=== PATIENT | male | born 1945 | race Caucasian/White ===

== ENCOUNTER 2018-06-06 15:39 | Inpatient (IN) | payer MEDICARE, OTHER | END 2018-06-09 14:41 | disposition home health service (06) | LOC: ER 15:39 → ED HOLD 18:44 → PCU 3S 21:15 | DX: I11.0 Hypertensive heart disease with heart failure (principal); G92 Toxic encephalopathy; E87.1 Hypo-osmolality and hyponatremia; J44.1 Chronic obstructive pulmonary disease with (acute) exacerbation; I50.9 Heart failure, unspecified; E78.00 Pure hypercholesterolemia, unspecified; F10.20 Alcohol dependence, uncomplicated ==

== ENCOUNTER 2022-07-28 09:05 | Emergency (ER) | payer MEDICARE, OTHER ==
[~2022-07-28] VITALS: Ht 175.3 cm; Wt 81.8 kg
[~2022-07-28 09:05] MED LIST: ALBU6.7H14 INH; AMLO5TAB16 PO; FOLI1TAB27 PO; IBUP-1985 PO; LEVO-65 PO; PANT40TA54 PO; PRAV80TA PO; TRAZ150T78 PO; thiamine tablet PO
--- NOTE | 2022-07-28 09:32 | NUR ---
TO CT SCAN
[2022-07-28 10:01] LABS: CLARITY,URINE SLIGHTLY CLOUDY (Clear); COLOR,URINE YELLOW (Yellow); GLUCOSE, URINE NEGATIVE (Neg); KETONES,URINE NEGATIVE (Neg); LEUKOCYTE ESTERASE ,URINE MODERATE (Neg); NITRITES, URINE NEGATIVE (Neg); OCCULT BLOOD,URINE SMALL (Neg); PH,URINE 6.5 (4.8-8.0); PROTEIN,URINE 30 mg/dl (Neg); UROBILINOGEN,URINE 0.2 E.U/dL (0.2-1.0)
[2022-07-28 10:02] LABS: UA COLLECTION TYPE VOIDED
[2022-07-28] MEDS ORDERED: normal saline 1000ml 1,000 ML IV ONE (10:05)
[2022-07-28 10:11] LABS: BASOPHILS % (AUTO) 0.5 % (0-1); EOSINOPHILS % (AUTO) 0.5 % (0-6); HEMATOCRIT 38.5 % (42.0-52.0); HEMOGLOBIN 12.8 g/dl (14.0-17.9); LYMPHOCYTES % (AUTO) 13.7 % (21-51); MEAN CORPUSCULAR HEMOGLOBIN 31.3 PG (27.0-31.0); MEAN CORPUSCULAR HGB CONC 33.3 g/dL (33.0-36.5); MEAN CORPUSCULAR VOLUME 94.1 FL (78-98); MEAN PLATELET VOLUME 8.9 FL (7.4-10.4); MONOCYTES # (AUTO) 0.6 X10'3 (0-0.9); MONOCYTES % (AUTO) 7.8 % (2-12); NEUTROPHILS # (AUTO) 5.9 X10'3 (1.8-7.7); NEUTROPHILS % (AUTO) 77.5 % (42-75); PLATELET COUNT 133 X10'3 (140-440); RED BLOOD COUNT 4.09 X10'6 (4.70-6.10); RED CELL DISTRIBUTION WIDTH 13.3 % (11.5-14.5); WHITE BLOOD COUNT 7.6 X10'3 (4.5-11.0)
[2022-07-28 10:17] LABS: SQUAMOUS EPITHELIAL CELL,UR NONE SEEN /LPF (FEW)
[2022-07-28 10:18] LABS: MUCUS STRANDS NONE SEEN /LPF (Neg); WBC CLUMPS,URINE MODERATE /HPF (NEGATIVE); WBC,URINE TNTC /HPF (0-4)
[2022-07-28 10:21] LABS: BACTERIA,URINE 4+ /HPF (Neg)
[2022-07-28 10:25] LABS: ALANINE AMINOTRANSFERASE 14 U/L (12-78); ALBUMIN 3.7 G/DL (3.4-5.0); ALBUMIN/GLOBULIN RATIO 1.1 (1.1-1.5); ALKALINE PHOSPHATASE 87 IU/L (46-116); ANION GAP 5 (8-16); ASPARTATE AMINO TRANSFERASE 6 U/L (10-37); BLOOD UREA NITROGEN 22 MG/DL (7-18); BUN/CREATININE RATIO 16.4 (10.0-20.0); CALCIUM 8.5 MG/DL (8.5-10.1); CHLORIDE 104 MMOL/L (99-107); CREATININE 1.34 MG/DL (0.60-1.10); GLUCOSE 92 MG/DL (70-104); POTASSIUM 3.5 MMOL/L (3.5-5.1); SODIUM 140 MMOL/L (135-145); TOTAL CARBON DIOXIDE 30.7 MMOL/L (24-32); eGFR 51 ML/MIN
[2022-07-28] MEDS ORDERED: TETanus/Pertussis (Acell)/Diphther VAC/PF (Tdap-Adult) 0.5ml syringe IMVAC ONE (10:25)
[2022-07-28] MEDS ORDERED: ceFAZolin/D5W- 1GM premix 50 ML IV ONE (10:26)
[2022-07-28] MEDS ORDERED: CEPH-585 PO (11:13)
--- NOTE | 2022-07-28 11:15 | NUR ---
RN CLEANED PT WOUNDS WITH IODINE AND PLACED STERISTRIPS/NONSTICK BANDAGE/GAUZE WRAP PER DR NOLAN.
[2022-07-28 11:29] VITALS: BP 161/76
== END 2022-07-28 12:14 | disposition home or self-care (01) ==
LOC: ER 09:05
DX: S00.81XA Abrasion of other part of head, initial encounter (principal); I10 Essential (primary) hypertension; J44.9 Chronic obstructive pulmonary disease, unspecified; Z56.0 Unemployment, unspecified; Z79.899 Other long term (current) drug therapy; W18.39XA Other fall on same level, initial encounter; Y93.89 Activity, other specified; Y92.89 Other specified places as the place of occurrence of the external cause; Y99.8 Other external cause status
CPT/HCPCS: 36415; 70450; 71045; 72125; 73090; 80053; 81001; 83880; 84484; 85025; 87077; 87088; 87186; 90471; 90715; 93005; 96365; 99285; J0690; J7030; A6258; A6446; A6449

== ENCOUNTER 2024-04-18 23:30 | Inpatient (IN) | payer OTHER ==
[~2024-04-18] VITALS: Ht 177.8 cm; Wt 97.6 kg
[~2024-04-18 23:30] MED LIST changes: +ACET-2119 PO; -ALBU6.7H14 INH; -AMLO5TAB16 PO; +AMOX500C2 PO; +APIX5TAB3 PO; +CYAN-34 PO; +DOCU100C40 PO; +FURO-150 PO; -IBUP-1985 PO; -LEVO-65 PO; -PANT40TA54 PO; -PRAV80TA PO; +ROSU40TA89 PO; +SACU1TAB PO
[2024-04-19 00:12] LABS: BASOPHILS % (AUTO) 0.1 % (0-1); EOSINOPHILS % (AUTO) 0 % (0-6); HEMATOCRIT 37.6 % (42.0-52.0); HEMOGLOBIN 12.5 g/dl (14.0-17.9); LYMPHOCYTES # (AUTO) 0.3 X10'3 (1.1-4.8); MEAN CORPUSCULAR HEMOGLOBIN 33.4 PG (27.0-31.0); MEAN CORPUSCULAR HGB CONC 33.2 g/dL (33.0-36.5); MEAN CORPUSCULAR VOLUME 100.4 FL (78-98); MONOCYTES # (AUTO) 1.1 X10'3 (0-0.9); MONOCYTES % (AUTO) 8.5 % (2-12); NEUTROPHILS # (AUTO) 11.8 X10'3 (1.8-7.7); NEUTROPHILS % (AUTO) 89.4 % (42-75); PLATELET COUNT 98 X10'3 (140-440); RED BLOOD COUNT 3.75 X10'6 (4.70-6.10); RED CELL DISTRIBUTION WIDTH 14.1 % (11.5-14.5); WHITE BLOOD COUNT 13.2 X10'3 (4.5-11.0)
[2024-04-19 00:36] LABS: ALANINE AMINOTRANSFERASE 28 U/L (12-78); ALBUMIN 3.6 G/DL (3.4-5.0); ALBUMIN/GLOBULIN RATIO 0.8 (1.1-1.5); ALKALINE PHOSPHATASE 100 IU/L (46-116); ANION GAP 6 (8-16); ASPARTATE AMINO TRANSFERASE 54 U/L (10-37); BILIRUBIN,TOTAL 1.2 MG/DL (0.1-1.0); BLOOD UREA NITROGEN 28 MG/DL (7-18); BUN/CREATININE RATIO 17.8 (10.0-20.0); CALCIUM 8.4 MG/DL (8.5-10.1); CHLORIDE 102 MMOL/L (99-107); CREATININE 1.57 MG/DL (0.60-1.10); GLUCOSE 103 MG/DL (70-104); POTASSIUM 4.4 MMOL/L (3.5-5.1); SODIUM 138 MMOL/L (135-145); TOTAL CARBON DIOXIDE 30.5 MMOL/L (24-32); eCRCL 38 ML/MIN; eGFR 43 ML/MIN
[2024-04-19 00:43] LABS: PRO BRAIN NATRIURETIC PEPTIDE 5320 PG/ML (0-450)
[2024-04-19] MEDS: CefTRIAXone/D5W-Rocephin 1gm 50 ML IV ONE (01:15)
[2024-04-19] MEDS: azithromycin/NS 500mg/250ml 250 ML IV ONE (01:45)
[2024-04-19 01:52] LABS: BILIRUBIN,URINE SMALL (Neg); CLARITY,URINE SLIGHTLY CLOUDY (Clear); COLOR,URINE YELLOW (Yellow); GLUCOSE, URINE NEGATIVE (Neg); KETONES,URINE NEGATIVE (Neg); LEUKOCYTE ESTERASE ,URINE NEGATIVE (Neg); NITRITES, URINE NEGATIVE (Neg); OCCULT BLOOD,URINE LARGE (Neg); PH,URINE 5.5 (4.8-8.0); PROTEIN,URINE 100 mg/dl (Neg); UROBILINOGEN,URINE 0.2 E.U/dL (0.2-1.0)
[2024-04-19 02:02] LABS: FINE GRANULAR CAST 0-3 /LPF (NEGATIVE); SQUAMOUS EPITHELIAL CELL,UR MODERATE /LPF (FEW); UA COLLECTION TYPE STRAIGHT CATH
[2024-04-19 02:03] LABS: BACTERIA,URINE 2+ /HPF (Neg); WBC,URINE 0-4 /HPF (0-4)
[2024-04-19] MEDS: normal saline 1000ml 1,000 ML IV ONE (02:46)
[2024-04-19] MEDS ORDERED: potassium Cl 40MEQ/1/2NS 520ml 520 ML IV PRN (04:10)
[2024-04-19] MEDS ORDERED: magnesium sulf-water 4G/100mL 100 ML IV PRN (04:10)
[2024-04-19] MEDS ORDERED: potassium Cl 20 mEq SR tablet PO PRN ×2 (04:10)
[2024-04-19] MEDS ORDERED: magnesium Cl slow-release 64mg tablet PO PRN (04:10)
[2024-04-19] MEDS ORDERED: ondansetron/PF 4mg/2ml inj IV PRN (04:10)
[2024-04-19] MEDS ORDERED: magnesium sulf-water 2g/50mL 50 ML IV PRN (04:10)
[2024-04-19] MEDS ORDERED: mag hydrox/Alum hydrox/simeth 30ml oral suspension PO PRN (04:10)
[2024-04-19] MEDS ORDERED: magnesium hydroxide 30ml (MOM) UD suspension PO PRN (04:10)
[2024-04-19] MEDS ORDERED: acetaminophen 325mg tablet PO PRN (04:10)
[2024-04-19 04:26] LABS: POTASSIUM 4.6 MMOL/L (3.5-5.1)
[2024-04-19] MEDS: heparin 10,000 units/1 ML INJ IV ONE (04:26)
[2024-04-19] MEDS: heparin 25,000 UNIT/250ml bag 250 ML IV PRN (04:29)
[2024-04-19] MEDS: MESSAGE TO NURSING IV ONE ×2 (04:30→18:40)
[2024-04-19 04:45] LABS: APTT 31 SECONDS (22-32); INR 1.3 INR; PROTHROMBIN TIME 13.1 SECONDS (9.0-12.0)
[2024-04-19] MEDS: VANCOMYCIN 500MG/WATER FOR INJ (PEG) PREMIX 100 ML IV SCH (05:17)
[2024-04-19] MEDS: aspirin 325mg tablet PO ONE (05:46)
[2024-04-19 06:36] LABS: BASOPHILS % (AUTO) 0 % (0-1); EOSINOPHILS % (AUTO) 0 % (0-6); HEMATOCRIT 30.3 % (42.0-52.0); HEMOGLOBIN 10.1 g/dl (14.0-17.9); LYMPHOCYTES # (AUTO) 0.5 X10'3 (1.1-4.8); LYMPHOCYTES % (AUTO) 5.4 % (21-51); MEAN CORPUSCULAR HEMOGLOBIN 33.8 PG (27.0-31.0); MEAN CORPUSCULAR HGB CONC 33.4 g/dL (33.0-36.5); MEAN CORPUSCULAR VOLUME 101.4 FL (78-98); MEAN PLATELET VOLUME 8.3 FL (7.4-10.4); MONOCYTES % (AUTO) 11.3 % (2-12); NEUTROPHILS # (AUTO) 7.6 X10'3 (1.8-7.7); NEUTROPHILS % (AUTO) 83.3 % (42-75); PLATELET COUNT 74 X10'3 (140-440); RED BLOOD COUNT 2.99 X10'6 (4.70-6.10); RED CELL DISTRIBUTION WIDTH 14.1 % (11.5-14.5); WHITE BLOOD COUNT 9.1 X10'3 (4.5-11.0)
[2024-04-19 07:00] LABS: ALANINE AMINOTRANSFERASE 34 U/L (12-78); ALBUMIN 2.7 G/DL (3.4-5.0); ALBUMIN/GLOBULIN RATIO 0.7 (1.1-1.5); ALKALINE PHOSPHATASE 73 IU/L (46-116); ANION GAP 7 (8-16); ASPARTATE AMINO TRANSFERASE 101 U/L (10-37); BILIRUBIN,TOTAL 0.8 MG/DL (0.1-1.0); BLOOD UREA NITROGEN 31 MG/DL (7-18); BUN/CREATININE RATIO 21.7 (10.0-20.0); CALCIUM 7.4 MG/DL (8.5-10.1); CHLORIDE 104 MMOL/L (99-107); CREATININE 1.43 MG/DL (0.60-1.10); GLUCOSE 108 MG/DL (70-104); MAGNESIUM 1.9 MG/DL (1.5-2.4); POTASSIUM 4.1 MMOL/L (3.5-5.1); SODIUM 138 MMOL/L (135-145); TOTAL CARBON DIOXIDE 27.3 MMOL/L (24-32); TOTAL PROTEIN 6.8 G/DL (6.4-8.2); eCRCL 42 ML/MIN; eGFR 47 ML/MIN
[2024-04-19] MEDS: sacubitril/valsartan 24mg-26mg tablet PO SCH (08:00)
[2024-04-19] MEDS: K and/or MAG REPLACEMENT MC SCH (08:00)
[2024-04-19] MEDS: piperacillin/tazo 4.5gm/100ml 100 ML IV SCH (08:12)
[2024-04-19] MEDS: folic acid 1mg tablet PO SCH (08:17)
[2024-04-19] MEDS: docusate sod 100mg capsule PO SCH (08:17)
[2024-04-19] MEDS: atorvastatin 20mg tablet PO SCH (08:18)
[2024-04-19] MEDS: metoprolol succinate 25mg (24-HOUR) SR. Tablet PO SCH (08:18)
[2024-04-19] MEDS: cyanocobalamin 500mcg tablet PO SCH (08:29)
[2024-04-19 09:36] LABS: URINE AMPHETAMINE SCREEN NEGATIVE (Neg); URINE BARBITUATE SCREEN NEGATIVE (Neg); URINE BENZODIAZEPINES SCREEN NEGATIVE (Neg); URINE CANNABINOID SCREEN NEGATIVE (Neg); URINE COCAINE SCREEN NEGATIVE (Neg); URINE METHADONE SCREEN NEGATIVE (Neg); URINE OPIATE SCREEN NEGATIVE (Neg); URINE PHENCYCLIDINE SCREEN NEGATIVE (Neg)
[2024-04-19 17:34] VITALS: BP 119/66; PULSE 76; RESP 18; TEMP 98.2; O2SAT 99
[2024-04-19 18:00] VITALS: BP 116/53; PULSE 82; RESP 18; TEMP 98.3; O2SAT 94
[2024-04-19] MEDS: traZODone 150mg tablet PO SCH (19:59)
[2024-04-19 20:00] VITALS: RESP 18; O2SAT 94
[2024-04-19 22:00] VITALS: BP 114/63; PULSE 87; RESP 20; TEMP 97.5; O2SAT 87; O2SAT 97
[2024-04-19] MEDS: azithromycin/NS 500mg/250ml 250 ML IV SCH (22:42)
[2024-04-20] VITALS (12 sets, daily range): BP systolic 95–135; BP diastolic 50–66; PULSE 74–92; RESP 16–22; TEMP 97.6–98.7; O2SAT 92–100
[2024-04-20 01:16] LABS: INR 1.2 INR; PROTHROMBIN TIME 12.6 SECONDS (9.0-12.0)
[2024-04-20] MEDS: heparin 10,000 units/1 ML INJ IV PRN (01:41)
[2024-04-20] MEDS: MESSAGE TO NURSING IV ONE ×3 (02:07→16:43)
[2024-04-20 07:55] LABS: BASOPHILS % (AUTO) 0.1 % (0-1); EOSINOPHILS % (AUTO) 0 % (0-6); HEMATOCRIT 28.2 % (42.0-52.0); HEMOGLOBIN 9.5 g/dl (14.0-17.9); LYMPHOCYTES # (AUTO) 0.7 X10'3 (1.1-4.8); LYMPHOCYTES % (AUTO) 8.6 % (21-51); MEAN CORPUSCULAR HEMOGLOBIN 34.4 PG (27.0-31.0); MEAN CORPUSCULAR HGB CONC 33.7 g/dL (33.0-36.5); MEAN PLATELET VOLUME 8.5 FL (7.4-10.4); MONOCYTES # (AUTO) 1.1 X10'3 (0-0.9); MONOCYTES % (AUTO) 12.4 % (2-12); NEUTROPHILS # (AUTO) 6.7 X10'3 (1.8-7.7); NEUTROPHILS % (AUTO) 78.9 % (42-75); PLATELET COUNT 76 X10'3 (140-440); RED BLOOD COUNT 2.77 X10'6 (4.70-6.10); RED CELL DISTRIBUTION WIDTH 14.1 % (11.5-14.5); WHITE BLOOD COUNT 8.5 X10'3 (4.5-11.0)
[2024-04-20] MEDS ORDERED: albuterol 2.5 MG/3 ML nebule NEB PRN (08:40)
[2024-04-20 08:43] LABS: ALANINE AMINOTRANSFERASE 42 U/L (12-78); ALBUMIN 2.3 G/DL (3.4-5.0); ALBUMIN/GLOBULIN RATIO 0.7 (1.1-1.5); ALKALINE PHOSPHATASE 54 IU/L (46-116); ANION GAP 5 (8-16); ASPARTATE AMINO TRANSFERASE 106 U/L (10-37); BILIRUBIN,TOTAL 0.7 MG/DL (0.1-1.0); BLOOD UREA NITROGEN 41 MG/DL (7-18); BUN/CREATININE RATIO 25.8 (10.0-20.0); CALCIUM 7.6 MG/DL (8.5-10.1); CHLORIDE 105 MMOL/L (99-107); CREATININE 1.59 MG/DL (0.60-1.10); GLUCOSE 90 MG/DL (70-104); PHOSPHORUS 4.3 MG/DL (2.3-4.5); POTASSIUM 4.3 MMOL/L (3.5-5.1); SODIUM 140 MMOL/L (135-145); TOTAL CARBON DIOXIDE 30.1 MMOL/L (24-32); TOTAL PROTEIN 5.8 G/DL (6.4-8.2); eCRCL 38 ML/MIN; eGFR 42 ML/MIN
[2024-04-20] MEDS: aspirin 81mg, enteric-coated 1 TAB TABLET.DR PO SCH (08:59)
[2024-04-20] MEDS: atorvastatin 10mg tablet PO SCH (09:00)
[2024-04-20] MEDS: ipratropium/albuterol 3ml nebule NEB SCH (11:50)
[2024-04-20] MEDS: VANCOMYCIN LEVEL IV ONE (16:30)
[2024-04-20] MEDS: budesonide 0.5mg/2ml UD nebule IH SCH (19:44)
[2024-04-21] VITALS (19 sets, daily range): BP systolic 104–111; BP diastolic 45–63; PULSE 76–117; RESP 16–22; TEMP 97.4–98.5; O2SAT 89–99
[2024-04-21] MEDS: MESSAGE TO NURSING IV ONE ×3 (01:27→14:12)
[2024-04-21 06:52] LABS: BASOPHILS % (AUTO) 0.2 % (0-1); EOSINOPHILS % (AUTO) 0.5 % (0-6); HEMATOCRIT 26.3 % (42.0-52.0); HEMOGLOBIN 9.1 g/dl (14.0-17.9); LYMPHOCYTES # (AUTO) 0.6 X10'3 (1.1-4.8); LYMPHOCYTES % (AUTO) 8.9 % (21-51); MEAN CORPUSCULAR HEMOGLOBIN 34.5 PG (27.0-31.0); MEAN CORPUSCULAR HGB CONC 34.4 g/dL (33.0-36.5); MEAN CORPUSCULAR VOLUME 100.2 FL (78-98); MEAN PLATELET VOLUME 8.4 FL (7.4-10.4); MONOCYTES # (AUTO) 0.8 X10'3 (0-0.9); MONOCYTES % (AUTO) 11.2 % (2-12); NEUTROPHILS # (AUTO) 5.5 X10'3 (1.8-7.7); NEUTROPHILS % (AUTO) 79.2 % (42-75); PLATELET COUNT 87 X10'3 (140-440); RED BLOOD COUNT 2.63 X10'6 (4.70-6.10); RED CELL DISTRIBUTION WIDTH 14.1 % (11.5-14.5)
[2024-04-21 06:56] LABS: INR 1.1 INR; PROTHROMBIN TIME 11.9 SECONDS (9.0-12.0)
[2024-04-21 07:17] LABS: ALANINE AMINOTRANSFERASE 43 U/L (12-78); ALBUMIN 2.3 G/DL (3.4-5.0); ALBUMIN/GLOBULIN RATIO 0.7 (1.1-1.5); ALKALINE PHOSPHATASE 57 IU/L (46-116); ANION GAP 3 (8-16); ASPARTATE AMINO TRANSFERASE 76 U/L (10-37); BILIRUBIN,TOTAL 0.8 MG/DL (0.1-1.0); BLOOD UREA NITROGEN 48 MG/DL (7-18); BUN/CREATININE RATIO 35.3 (10.0-20.0); CHLORIDE 107 MMOL/L (99-107); CREATININE 1.36 MG/DL (0.60-1.10); GLUCOSE 100 MG/DL (70-104); MAGNESIUM 2.1 MG/DL (1.5-2.4); SODIUM 143 MMOL/L (135-145); TOTAL CARBON DIOXIDE 32.6 MMOL/L (24-32); TOTAL PROTEIN 5.7 G/DL (6.4-8.2); eCRCL 44 ML/MIN; eGFR 50 ML/MIN
[2024-04-21] MEDS: atorvastatin 20mg tablet PO SCH (07:52)
[2024-04-21] MEDS: CefTRIAXone 2gm/D5W 50ml BAG 50 ML IV SCH (11:29)
[2024-04-21] MEDS: ampicillin inj 2 GM in normal saline 100ml IV soln 100 ML IV SCH (14:22)
[2024-04-21] MEDS ORDERED: vancomycin/NS 1 GM ADD-VANTAGE 250 ML IV SCH (17:00)
[2024-04-21] MEDS: apixaban 5mg tablet PO SCH (22:16)
[2024-04-21] MEDS: diatr meglu/diatrizoate 30ml oral sol.-(3 dose) bottle PO SCH (22:18)
[2024-04-22] VITALS (16 sets, daily range): BP systolic 117–148; BP diastolic 57–84; PULSE 67–118; RESP 14–24; TEMP 97.4–98.2; O2SAT 90–94
[2024-04-22] MEDS: ampicillin inj 2 GM in normal saline 100ml IV soln 100 ML IV SCH ×2 (00:21→14:40)
[2024-04-22 08:15] LABS: ALANINE AMINOTRANSFERASE 39 U/L (12-78); ALBUMIN 2.5 G/DL (3.4-5.0); ALBUMIN/GLOBULIN RATIO 0.6 (1.1-1.5); ALKALINE PHOSPHATASE 70 IU/L (46-116); ANION GAP 5 (8-16); ASPARTATE AMINO TRANSFERASE 62 U/L (10-37); BILIRUBIN,TOTAL 0.5 MG/DL (0.1-1.0); BLOOD UREA NITROGEN 36 MG/DL (7-18); BUN/CREATININE RATIO 28.6 (10.0-20.0); CALCIUM 8.9 MG/DL (8.5-10.1); CHLORIDE 105 MMOL/L (99-107); CREATININE 1.26 MG/DL (0.60-1.10); GLUCOSE 102 MG/DL (70-104); MAGNESIUM 1.9 MG/DL (1.5-2.4); PHOSPHORUS 3.5 MG/DL (2.3-4.5); POTASSIUM 4.2 MMOL/L (3.5-5.1); SODIUM 140 MMOL/L (135-145); TOTAL CARBON DIOXIDE 30.4 MMOL/L (24-32); TOTAL PROTEIN 6.7 G/DL (6.4-8.2); eCRCL 47 ML/MIN; eGFR 55 ML/MIN
[2024-04-22 08:18] LABS: APTT 30 SECONDS (22-32); INR 1.2 INR; PROTHROMBIN TIME 12.1 SECONDS (9.0-12.0)
[2024-04-22 11:20] LABS: BASOPHILS % (AUTO) 0.3 % (0-1); EOSINOPHILS # (AUTO) 0.1 X10'3 (0-0.9); EOSINOPHILS % (AUTO) 1.1 % (0-6); HEMATOCRIT 28.2 % (42.0-52.0); HEMOGLOBIN 9.4 g/dl (14.0-17.9); LYMPHOCYTES # (AUTO) 0.7 X10'3 (1.1-4.8); LYMPHOCYTES % (AUTO) 9.6 % (21-51); MEAN CORPUSCULAR HGB CONC 33.5 g/dL (33.0-36.5); MEAN CORPUSCULAR VOLUME 101.6 FL (78-98); MEAN PLATELET VOLUME 8.9 FL (7.4-10.4); MONOCYTES # (AUTO) 0.8 X10'3 (0-0.9); MONOCYTES % (AUTO) 10.7 % (2-12); NEUTROPHILS # (AUTO) 5.8 X10'3 (1.8-7.7); NEUTROPHILS % (AUTO) 78.3 % (42-75); PLATELET COUNT 110 X10'3 (140-440); RED BLOOD COUNT 2.77 X10'6 (4.70-6.10); RED CELL DISTRIBUTION WIDTH 13.9 % (11.5-14.5); WHITE BLOOD COUNT 7.4 X10'3 (4.5-11.0)
[2024-04-22] MEDS: acetaminophen 325mg tablet PO PRN (11:24)
[2024-04-23] VITALS (19 sets, daily range): BP systolic 127–135; BP diastolic 53–76; PULSE 75–124; RESP 18–35; TEMP 97.6–98.4; O2SAT 71–95
[2024-04-23] MEDS ORDERED: VANCOMYCIN LEVEL IV ONE (04:30)
[2024-04-23 07:42] LABS: BASOPHILS % (AUTO) 0.3 % (0-1); EOSINOPHILS # (AUTO) 0.1 X10'3 (0-0.9); EOSINOPHILS % (AUTO) 1.9 % (0-6); HEMATOCRIT 26.7 % (42.0-52.0); HEMOGLOBIN 9.2 g/dl (14.0-17.9); LYMPHOCYTES # (AUTO) 0.6 X10'3 (1.1-4.8); LYMPHOCYTES % (AUTO) 9.3 % (21-51); MEAN CORPUSCULAR HEMOGLOBIN 34.7 PG (27.0-31.0); MEAN CORPUSCULAR HGB CONC 34.4 g/dL (33.0-36.5); MEAN CORPUSCULAR VOLUME 100.7 FL (78-98); MEAN PLATELET VOLUME 8.5 FL (7.4-10.4); MONOCYTES # (AUTO) 0.9 X10'3 (0-0.9); MONOCYTES % (AUTO) 12.6 % (2-12); NEUTROPHILS # (AUTO) 5.2 X10'3 (1.8-7.7); NEUTROPHILS % (AUTO) 75.9 % (42-75); PLATELET COUNT 117 X10'3 (140-440); RED BLOOD COUNT 2.65 X10'6 (4.70-6.10); RED CELL DISTRIBUTION WIDTH 14.2 % (11.5-14.5); WHITE BLOOD COUNT 6.9 X10'3 (4.5-11.0)
[2024-04-23 07:49] LABS: INR 1.2 INR; PROTHROMBIN TIME 12.8 SECONDS (9.0-12.0)
[2024-04-23 08:17] LABS: ALANINE AMINOTRANSFERASE 39 U/L (12-78); ALBUMIN 2.4 G/DL (3.4-5.0); ALBUMIN/GLOBULIN RATIO 0.6 (1.1-1.5); ALKALINE PHOSPHATASE 69 IU/L (46-116); ANION GAP 5 (8-16); ASPARTATE AMINO TRANSFERASE 47 U/L (10-37); BILIRUBIN,TOTAL 0.6 MG/DL (0.1-1.0); BLOOD UREA NITROGEN 32 MG/DL (7-18); BUN/CREATININE RATIO 27.4 (10.0-20.0); CALCIUM 8.9 MG/DL (8.5-10.1); CHLORIDE 107 MMOL/L (99-107); CREATININE 1.17 MG/DL (0.60-1.10); GLUCOSE 103 MG/DL (70-104); MAGNESIUM 1.8 MG/DL (1.5-2.4); PHOSPHORUS 3.9 MG/DL (2.3-4.5); POTASSIUM 4.2 MMOL/L (3.5-5.1); SODIUM 143 MMOL/L (135-145); TOTAL CARBON DIOXIDE 30.9 MMOL/L (24-32); TOTAL PROTEIN 6.3 G/DL (6.4-8.2); eCRCL 51 ML/MIN; eGFR 60 ML/MIN
[2024-04-24] VITALS (18 sets, daily range): BP systolic 128–165; BP diastolic 71–90; PULSE 71–125; RESP 16–30; TEMP 96.8–98.3; O2SAT 86–96
[2024-04-24 07:24] LABS: INR 1.2 INR; PROTHROMBIN TIME 12.8 SECONDS (9.0-12.0)
[2024-04-24 07:42] LABS: ALANINE AMINOTRANSFERASE 33 U/L (12-78); ALBUMIN 2.4 G/DL (3.4-5.0); ALBUMIN/GLOBULIN RATIO 0.6 (1.1-1.5); ALKALINE PHOSPHATASE 68 IU/L (46-116); ANION GAP 4 (8-16); ASPARTATE AMINO TRANSFERASE 36 U/L (10-37); BILIRUBIN,TOTAL 0.4 MG/DL (0.1-1.0); BLOOD UREA NITROGEN 32 MG/DL (7-18); BUN/CREATININE RATIO 26.4 (10.0-20.0); CALCIUM 8.6 MG/DL (8.5-10.1); CHLORIDE 107 MMOL/L (99-107); CREATININE 1.21 MG/DL (0.60-1.10); GLUCOSE 97 MG/DL (70-104); MAGNESIUM 1.7 MG/DL (1.5-2.4); PHOSPHORUS 3.7 MG/DL (2.3-4.5); POTASSIUM 4.3 MMOL/L (3.5-5.1); SODIUM 145 MMOL/L (135-145); TOTAL CARBON DIOXIDE 33.7 MMOL/L (24-32); TOTAL PROTEIN 6.4 G/DL (6.4-8.2); eCRCL 49 ML/MIN; eGFR 58 ML/MIN
[2024-04-24] MEDS: metoprolol succinate 25mg (24-HOUR) SR. Tablet PO SCH (09:14)
[2024-04-24] MEDS: furosemide 40mg/4ml inj IV ONE (09:17)
[2024-04-24 10:01] LABS: BASOPHILS % (AUTO) 0.3 % (0-1); EOSINOPHILS % (AUTO) 0.5 % (0-6); HEMATOCRIT 28.8 % (42.0-52.0); HEMOGLOBIN 9.6 g/dl (14.0-17.9); LYMPHOCYTES # (AUTO) 0.7 X10'3 (1.1-4.8); LYMPHOCYTES % (AUTO) 7.3 % (21-51); MEAN CORPUSCULAR HEMOGLOBIN 33.8 PG (27.0-31.0); MEAN CORPUSCULAR HGB CONC 33.2 g/dL (33.0-36.5); MEAN CORPUSCULAR VOLUME 101.8 FL (78-98); MEAN PLATELET VOLUME 8.3 FL (7.4-10.4); MONOCYTES # (AUTO) 0.9 X10'3 (0-0.9); MONOCYTES % (AUTO) 9.6 % (2-12); NEUTROPHILS # (AUTO) 7.4 X10'3 (1.8-7.7); NEUTROPHILS % (AUTO) 82.3 % (42-75); PLATELET COUNT 154 X10'3 (140-440); RED BLOOD COUNT 2.83 X10'6 (4.70-6.10)
[2024-04-24] MEDS: metoprolol tartrate 1mg/ml inj IV ONE (10:29)
[2024-04-24 19:54] LABS: ABG BASE EXCESS 8.3 mmol/L (-2.0-3.0); ABG OXYGEN SATURATION 89.9 % (94.0-98.0); ABG PCO2 (T) 68.9 mmHg (35.0-48.0); ABG PH (T) 7.335 (7.350-7.450); ABG PO2 (T) 61.8 mmHg (83.0-108.0); ALLEN'S TEST Modified; FCOHb 1.1 % (0.5-1.5); FMetHb 0.3 % (0.0-1.5); FO2Hb 88.6 % (94.0-98.0); PATIENT TEMPERATURE 36.8; TOTAL HEMOGLOBIN 10.2 G/dl (13.5-17.5)
[2024-04-25] VITALS (23 sets, daily range): BP systolic 117–160; BP diastolic 54–92; PULSE 78–116; RESP 22–38; TEMP 97.6–98.8; O2SAT 90–98
[2024-04-25] MEDS: furosemide 20 MG/2 ML vial IV SCH (07:51)
[2024-04-25] MEDS: methylPREDNISolone sod succ 125mg/2ml vial IV ONE (08:23)
[2024-04-25] MEDS: furosemide 40mg/4ml inj IV ONE (09:42)
[2024-04-25 11:07] LABS: BASOPHILS % (AUTO) 0.3 % (0-1); EOSINOPHILS % (AUTO) 0.2 % (0-6); HEMATOCRIT 28.9 % (42.0-52.0); HEMOGLOBIN 9.6 g/dl (14.0-17.9); LYMPHOCYTES # (AUTO) 0.4 X10'3 (1.1-4.8); LYMPHOCYTES % (AUTO) 4.2 % (21-51); MEAN CORPUSCULAR HEMOGLOBIN 33.9 PG (27.0-31.0); MEAN CORPUSCULAR HGB CONC 33.4 g/dL (33.0-36.5); MEAN CORPUSCULAR VOLUME 101.5 FL (78-98); MEAN PLATELET VOLUME 8.5 FL (7.4-10.4); MONOCYTES # (AUTO) 0.3 X10'3 (0-0.9); MONOCYTES % (AUTO) 3.4 % (2-12); NEUTROPHILS # (AUTO) 8.1 X10'3 (1.8-7.7); NEUTROPHILS % (AUTO) 91.9 % (42-75); PLATELET COUNT 204 X10'3 (140-440); RED BLOOD COUNT 2.85 X10'6 (4.70-6.10); WHITE BLOOD COUNT 8.8 X10'3 (4.5-11.0)
[2024-04-25 11:21] LABS: ALANINE AMINOTRANSFERASE 30 U/L (12-78); ALBUMIN 2.4 G/DL (3.4-5.0); ALBUMIN/GLOBULIN RATIO 0.5 (1.1-1.5); ALKALINE PHOSPHATASE 73 IU/L (46-116); ANION GAP 3 (8-16); ASPARTATE AMINO TRANSFERASE 29 U/L (10-37); BILIRUBIN,TOTAL 0.4 MG/DL (0.1-1.0); BLOOD UREA NITROGEN 42 MG/DL (7-18); BUN/CREATININE RATIO 33.3 (10.0-20.0); CALCIUM 8.6 MG/DL (8.5-10.1); CHLORIDE 106 MMOL/L (99-107); CREATININE 1.26 MG/DL (0.60-1.10); GLUCOSE 131 MG/DL (70-104); POTASSIUM 4.2 MMOL/L (3.5-5.1); SODIUM 145 MMOL/L (135-145); TOTAL CARBON DIOXIDE 36.5 MMOL/L (24-32); eCRCL 47 ML/MIN; eGFR 55 ML/MIN
[2024-04-25 14:35] LABS: ABG BASE EXCESS 5.6 mmol/L (-2.0-3.0); ABG HCO3 31.5 mmol/L (21.0-28.0); ABG OXYGEN SATURATION 97.1 % (94.0-98.0); ABG PH (T) 7.392 (7.350-7.450); ABG PO2 (T) 94.4 mmHg (83.0-108.0); ALLEN'S TEST POSITIVE; FCOHb 0.9 % (0.5-1.5); FHHb 2.9 % (0.0-5.0); FMetHb 0.3 % (0.0-1.5); FO2Hb 95.9 % (94.0-98.0); MODE MASK - BIPAP; RESPIRATORY RATE 14 b/min; TOTAL HEMOGLOBIN 9.9 G/dl (13.5-17.5)
[2024-04-25] MEDS: methylPREDNISolone sod succ 125mg/2ml vial IV SCH (16:14)
[2024-04-26] VITALS (22 sets, daily range): BP systolic 116–153; BP diastolic 52–74; PULSE 82–110; RESP 16–28; TEMP 97–98; O2SAT 87–96
[2024-04-26 07:46] LABS: BASOPHILS % (AUTO) 0 % (0-1); EOSINOPHILS % (AUTO) 0 % (0-6); HEMATOCRIT 25.5 % (42.0-52.0); HEMOGLOBIN 8.5 g/dl (14.0-17.9); LYMPHOCYTES # (AUTO) 0.3 X10'3 (1.1-4.8); MEAN CORPUSCULAR HEMOGLOBIN 33.6 PG (27.0-31.0); MEAN CORPUSCULAR HGB CONC 33.4 g/dL (33.0-36.5); MEAN CORPUSCULAR VOLUME 100.6 FL (78-98); MEAN PLATELET VOLUME 8.6 FL (7.4-10.4); MONOCYTES # (AUTO) 0.2 X10'3 (0-0.9); MONOCYTES % (AUTO) 2.4 % (2-12); NEUTROPHILS # (AUTO) 8.1 X10'3 (1.8-7.7); NEUTROPHILS % (AUTO) 93.6 % (42-75); PLATELET COUNT 220 X10'3 (140-440); RED BLOOD COUNT 2.54 X10'6 (4.70-6.10); RED CELL DISTRIBUTION WIDTH 13.8 % (11.5-14.5); WHITE BLOOD COUNT 8.6 X10'3 (4.5-11.0)
[2024-04-26] MEDS: furosemide 20 MG/2 ML vial IV SCH (08:11)
[2024-04-26 08:33] LABS: ALANINE AMINOTRANSFERASE 26 U/L (12-78); ALBUMIN 2.3 G/DL (3.4-5.0); ALBUMIN/GLOBULIN RATIO 0.6 (1.1-1.5); ALKALINE PHOSPHATASE 68 IU/L (46-116); ANION GAP 3 (8-16); ASPARTATE AMINO TRANSFERASE 24 U/L (10-37); BILIRUBIN,TOTAL 0.4 MG/DL (0.1-1.0); BLOOD UREA NITROGEN 46 MG/DL (7-18); BUN/CREATININE RATIO 38.3 (10.0-20.0); CALCIUM 8.2 MG/DL (8.5-10.1); CHLORIDE 104 MMOL/L (99-107); GLUCOSE 127 MG/DL (70-104); POTASSIUM 3.8 MMOL/L (3.5-5.1); SODIUM 142 MMOL/L (135-145); TOTAL CARBON DIOXIDE 34.9 MMOL/L (24-32); TOTAL PROTEIN 6.4 G/DL (6.4-8.2); eCRCL 50 ML/MIN; eGFR 58 ML/MIN
[2024-04-26] MEDS: ipratropium/albuterol 3ml nebule NEB PRN (20:14)
[2024-04-26] MEDS: methylPREDNISolone sod succ 125mg/2ml vial IV SCH (21:14)
[2024-04-27] VITALS (18 sets, daily range): BP systolic 104–152; BP diastolic 49–86; PULSE 84–98; RESP 12–28; TEMP 96.3–98.4; O2SAT 92–100
[2024-04-27 07:12] LABS: BASOPHILS % (AUTO) 0 % (0-1); EOSINOPHILS % (AUTO) 0 % (0-6); HEMATOCRIT 27.4 % (42.0-52.0); LYMPHOCYTES # (AUTO) 0.4 X10'3 (1.1-4.8); LYMPHOCYTES % (AUTO) 3.4 % (21-51); MEAN CORPUSCULAR HEMOGLOBIN 33.1 PG (27.0-31.0); MEAN CORPUSCULAR VOLUME 100.2 FL (78-98); MEAN PLATELET VOLUME 8.5 FL (7.4-10.4); MONOCYTES # (AUTO) 0.4 X10'3 (0-0.9); MONOCYTES % (AUTO) 3.5 % (2-12); NEUTROPHILS # (AUTO) 9.9 X10'3 (1.8-7.7); NEUTROPHILS % (AUTO) 93.1 % (42-75); PLATELET COUNT 285 X10'3 (140-440); RED BLOOD COUNT 2.73 X10'6 (4.70-6.10); RED CELL DISTRIBUTION WIDTH 13.7 % (11.5-14.5); WHITE BLOOD COUNT 10.6 X10'3 (4.5-11.0)
[2024-04-27 07:30] LABS: ALANINE AMINOTRANSFERASE 28 U/L (12-78); ALBUMIN 2.5 G/DL (3.4-5.0); ALBUMIN/GLOBULIN RATIO 0.6 (1.1-1.5); ALKALINE PHOSPHATASE 75 IU/L (46-116); ANION GAP 4 (8-16); ASPARTATE AMINO TRANSFERASE 23 U/L (10-37); BILIRUBIN,TOTAL 0.4 MG/DL (0.1-1.0); BLOOD UREA NITROGEN 57 MG/DL (7-18); BUN/CREATININE RATIO 37.5 (10.0-20.0); CALCIUM 8.1 MG/DL (8.5-10.1); CHLORIDE 102 MMOL/L (99-107); CREATININE 1.52 MG/DL (0.60-1.10); GLUCOSE 144 MG/DL (70-104); POTASSIUM 3.5 MMOL/L (3.5-5.1); SODIUM 142 MMOL/L (135-145); TOTAL CARBON DIOXIDE 36.5 MMOL/L (24-32); TOTAL PROTEIN 6.5 G/DL (6.4-8.2); eCRCL 39 ML/MIN; eGFR 44 ML/MIN
[2024-04-27] MEDS: lactose-reduced food (Ensure Enlive) - 237ml bottle PO SCH (08:40)
[2024-04-27] MEDS: clopidogrel 75mg tablet PO SCH (11:41)
[2024-04-28] VITALS (15 sets, daily range): BP systolic 99–144; BP diastolic 42–74; PULSE 66–106; RESP 15–36; TEMP 97.6–97.9; O2SAT 91–100
[2024-04-28] MEDS: furosemide 40mg/4ml inj IV SCH ×2 (01:53→20:32)
[2024-04-28 04:44] LABS: BASOPHILS % (AUTO) 0.1 % (0-1); EOSINOPHILS % (AUTO) 0 % (0-6); LYMPHOCYTES # (AUTO) 0.3 X10'3 (1.1-4.8); LYMPHOCYTES % (AUTO) 2.8 % (21-51); MEAN CORPUSCULAR HEMOGLOBIN 33.1 PG (27.0-31.0); MEAN CORPUSCULAR HGB CONC 33.2 g/dL (33.0-36.5); MEAN CORPUSCULAR VOLUME 99.6 FL (78-98); MEAN PLATELET VOLUME 8.2 FL (7.4-10.4); MONOCYTES # (AUTO) 0.5 X10'3 (0-0.9); MONOCYTES % (AUTO) 5.5 % (2-12); NEUTROPHILS # (AUTO) 8.4 X10'3 (1.8-7.7); NEUTROPHILS % (AUTO) 91.6 % (42-75); PLATELET COUNT 269 X10'3 (140-440); RED BLOOD COUNT 2.41 X10'6 (4.70-6.10); RED CELL DISTRIBUTION WIDTH 13.7 % (11.5-14.5); WHITE BLOOD COUNT 9.2 X10'3 (4.5-11.0)
[2024-04-28 04:57] LABS: ALANINE AMINOTRANSFERASE 27 U/L (12-78); ALBUMIN 2.2 G/DL (3.4-5.0); ALBUMIN/GLOBULIN RATIO 0.6 (1.1-1.5); ALKALINE PHOSPHATASE 70 IU/L (46-116); ANION GAP -3 (8-16); ASPARTATE AMINO TRANSFERASE 15 U/L (10-37); BILIRUBIN,TOTAL 0.3 MG/DL (0.1-1.0); BLOOD UREA NITROGEN 66 MG/DL (7-18); BUN/CREATININE RATIO 56.9 (10.0-20.0); CALCIUM 7.8 MG/DL (8.5-10.1); CHLORIDE 104 MMOL/L (99-107); CREATININE 1.16 MG/DL (0.60-1.10); GLUCOSE 141 MG/DL (70-104); POTASSIUM 3.9 MMOL/L (3.5-5.1); SODIUM 145 MMOL/L (135-145); TOTAL PROTEIN 5.7 G/DL (6.4-8.2); eCRCL 52 ML/MIN; eGFR 60 ML/MIN
[2024-04-28 05:48] LABS: TOTAL CARBON DIOXIDE 43.7 MMOL/L (24-32)
[2024-04-28] MEDS: ampicillin inj 2 GM in normal saline 100ml IV soln 100 ML IV SCH (09:38)
[2024-04-28 13:53] LABS: ALLEN'S TEST POSITIVE; PATIENT TEMPERATURE 36.4
[2024-04-28 13:54] LABS: ABG HCO3 37.9 mmol/L (21.0-28.0); ABG PCO2 (T) 61.5 mmHg (35.0-48.0); ABG PH (T) 7.405 (7.350-7.450); ABG PO2 (T) 61.8 mmHg (83.0-108.0)
[2024-04-28 13:55] LABS: ABG BASE EXCESS 11.4 mmol/L (-2.0-3.0); ABG OXYGEN SATURATION 92.1 % (94.0-98.0); FCOHb 0.8 % (0.5-1.5); FHHb 7.8 % (0.0-5.0); FMetHb 0.3 % (0.0-1.5); FO2Hb 91.1 % (94.0-98.0); TOTAL HEMOGLOBIN 8.5 G/dl (13.5-17.5)
[2024-04-28] MEDS ORDERED: methylPREDNISolone sod succ 125mg/2ml vial IV SCH (20:00)
[2024-04-28] MEDS ORDERED: methylPREDNISolone sod succ/PF 40mg inj. IV SCH (20:32)
[2024-04-28] MEDS: methylPREDNISolone sod succ/PF 40mg inj. IV SCH (21:01)
[2024-04-29] VITALS (12 sets, daily range): BP systolic 117–138; BP diastolic 62–70; PULSE 62–106; RESP 11–25; TEMP 97.5–97.9; O2SAT 92–98
[2024-04-29 06:41] LABS: BASOPHILS % (AUTO) 0 % (0-1); EOSINOPHILS % (AUTO) 0 % (0-6); HEMATOCRIT 24.8 % (42.0-52.0); LYMPHOCYTES # (AUTO) 0.4 X10'3 (1.1-4.8); LYMPHOCYTES % (AUTO) 2.9 % (21-51); MEAN CORPUSCULAR HEMOGLOBIN 32.3 PG (27.0-31.0); MEAN CORPUSCULAR HGB CONC 32.3 g/dL (33.0-36.5); MEAN CORPUSCULAR VOLUME 99.9 FL (78-98); MEAN PLATELET VOLUME 8.6 FL (7.4-10.4); MONOCYTES # (AUTO) 0.5 X10'3 (0-0.9); MONOCYTES % (AUTO) 3.6 % (2-12); NEUTROPHILS # (AUTO) 12.1 X10'3 (1.8-7.7); NEUTROPHILS % (AUTO) 93.5 % (42-75); PLATELET COUNT 262 X10'3 (140-440); RED BLOOD COUNT 2.48 X10'6 (4.70-6.10); RED CELL DISTRIBUTION WIDTH 13.6 % (11.5-14.5)
[2024-04-29 07:09] LABS: ALANINE AMINOTRANSFERASE 27 U/L (12-78); ALBUMIN 2.3 G/DL (3.4-5.0); ALBUMIN/GLOBULIN RATIO 0.7 (1.1-1.5); ALKALINE PHOSPHATASE 87 IU/L (46-116); ANION GAP 0 (8-16); ASPARTATE AMINO TRANSFERASE 22 U/L (10-37); BILIRUBIN,TOTAL 0.3 MG/DL (0.1-1.0); BLOOD UREA NITROGEN 70 MG/DL (7-18); BUN/CREATININE RATIO 62.5 (10.0-20.0); CALCIUM 7.8 MG/DL (8.5-10.1); CHLORIDE 102 MMOL/L (99-107); CREATININE 1.12 MG/DL (0.60-1.10); GLUCOSE 148 MG/DL (70-104); POTASSIUM 4.3 MMOL/L (3.5-5.1); SODIUM 141 MMOL/L (135-145); TOTAL CARBON DIOXIDE 38.6 MMOL/L (24-32); TOTAL PROTEIN 5.6 G/DL (6.4-8.2); eCRCL 53 ML/MIN; eGFR 63 ML/MIN
[2024-04-29 07:10] LABS: % IRON SATURATION 13 % (11-46); IRON 28 UG/DL (53-167); TOTAL IRON BINDING CAPACITY 221 UG/DL (259-388)
[2024-04-29] MEDS ORDERED: methylPREDNISolone sod succ/PF 40mg inj. IV SCH (08:00)
[2024-04-29] MEDS: ascorbic acid 500mg tablet PO SCH (17:59)
[2024-04-29] MEDS: ferrous sulfate 325mg tablet PO SCH (17:59)
[2024-04-29] MEDS: methylPREDNISolone sod succ/PF 40mg inj. IV SCH (20:36)
[2024-04-30] VITALS (13 sets, daily range): BP systolic 107–128; BP diastolic 59–68; PULSE 82–125; RESP 18–32; TEMP 97–97.8; O2SAT 91–98
[2024-04-30 07:03] LABS: BASOPHILS % (AUTO) 0 % (0-1); EOSINOPHILS % (AUTO) 0 % (0-6); HEMATOCRIT 24.8 % (42.0-52.0); LYMPHOCYTES # (AUTO) 0.6 X10'3 (1.1-4.8); LYMPHOCYTES % (AUTO) 3.5 % (21-51); MEAN CORPUSCULAR HEMOGLOBIN 32.2 PG (27.0-31.0); MEAN CORPUSCULAR HGB CONC 32.2 g/dL (33.0-36.5); MEAN CORPUSCULAR VOLUME 100.2 FL (78-98); MEAN PLATELET VOLUME 8.3 FL (7.4-10.4); MONOCYTES # (AUTO) 0.5 X10'3 (0-0.9); NEUTROPHILS # (AUTO) 15.2 X10'3 (1.8-7.7); NEUTROPHILS % (AUTO) 93.5 % (42-75); PLATELET COUNT 296 X10'3 (140-440); RED BLOOD COUNT 2.48 X10'6 (4.70-6.10); RED CELL DISTRIBUTION WIDTH 14.1 % (11.5-14.5); WHITE BLOOD COUNT 16.3 X10'3 (4.5-11.0)
[2024-04-30 07:21] LABS: ALANINE AMINOTRANSFERASE 34 U/L (12-78); ALBUMIN 2.6 G/DL (3.4-5.0); ALBUMIN/GLOBULIN RATIO 0.7 (1.1-1.5); ALKALINE PHOSPHATASE 87 IU/L (46-116); ANION GAP 2 (8-16); ASPARTATE AMINO TRANSFERASE 20 U/L (10-37); BILIRUBIN,TOTAL 0.4 MG/DL (0.1-1.0); BLOOD UREA NITROGEN 70 MG/DL (7-18); BUN/CREATININE RATIO 59.3 (10.0-20.0); CALCIUM 8.3 MG/DL (8.5-10.1); CHLORIDE 102 MMOL/L (99-107); CREATININE 1.18 MG/DL (0.60-1.10); GLUCOSE 148 MG/DL (70-104); POTASSIUM 4.4 MMOL/L (3.5-5.1); SODIUM 144 MMOL/L (135-145); TOTAL PROTEIN 6.1 G/DL (6.4-8.2); eCRCL 51 ML/MIN; eGFR 59 ML/MIN
[2024-04-30] MEDS ORDERED: METO-384 PO (10:00)
[2024-04-30] MEDS ORDERED: FURO-150 PO (10:00)
[2024-04-30] MEDS: furosemide 40mg/4ml inj IV ONE (10:26)
[2024-04-30] MEDS: metoprolol succinate 25mg (24-HOUR) SR. Tablet PO ONE (11:04)
[2024-04-30] MEDS: acetaZOLAMIDE 250mg tablet PO SCH (12:56)
[2024-04-30] MEDS: metoprolol tartrate 50mg tablet PO ONE (16:28)
[2024-04-30] MEDS: furosemide 40mg/4ml inj IV SCH (21:18)
[2024-04-30] MEDS: metoprolol succinate 25mg (24-HOUR) SR. Tablet PO SCH (21:18)
[2024-05-01] VITALS (14 sets, daily range): BP systolic 102–145; BP diastolic 49–118; PULSE 79–113; RESP 22–30; TEMP 97.3–98.2; O2SAT 91–99
[2024-05-01] MEDS ORDERED: nystatin 15 GM powder TP PRN (04:00)
[2024-05-01 08:45] LABS: BASOPHILS % (AUTO) 0.1 % (0-1); EOSINOPHILS % (AUTO) 0.2 % (0-6); HEMATOCRIT 25.1 % (42.0-52.0); HEMOGLOBIN 7.9 g/dl (14.0-17.9); LYMPHOCYTES # (AUTO) 0.8 X10'3 (1.1-4.8); LYMPHOCYTES % (AUTO) 5.8 % (21-51); MEAN CORPUSCULAR HEMOGLOBIN 32.5 PG (27.0-31.0); MEAN CORPUSCULAR HGB CONC 31.6 g/dL (33.0-36.5); MEAN PLATELET VOLUME 8.7 FL (7.4-10.4); MONOCYTES # (AUTO) 1.2 X10'3 (0-0.9); MONOCYTES % (AUTO) 8.1 % (2-12); NEUTROPHILS # (AUTO) 12.3 X10'3 (1.8-7.7); NEUTROPHILS % (AUTO) 85.8 % (42-75); PLATELET COUNT 273 X10'3 (140-440); RED BLOOD COUNT 2.44 X10'6 (4.70-6.10); RED CELL DISTRIBUTION WIDTH 14.2 % (11.5-14.5); WHITE BLOOD COUNT 14.3 X10'3 (4.5-11.0)
[2024-05-01 08:59] LABS: ALANINE AMINOTRANSFERASE 29 U/L (12-78); ALBUMIN 2.7 G/DL (3.4-5.0); ALBUMIN/GLOBULIN RATIO 0.8 (1.1-1.5); ALKALINE PHOSPHATASE 70 IU/L (46-116); ANION GAP 0 (8-16); ASPARTATE AMINO TRANSFERASE 27 U/L (10-37); BILIRUBIN,TOTAL 0.4 MG/DL (0.1-1.0); BLOOD UREA NITROGEN 78 MG/DL (7-18); BUN/CREATININE RATIO 61.4 (10.0-20.0); CALCIUM 8.3 MG/DL (8.5-10.1); CHLORIDE 103 MMOL/L (99-107); CREATININE 1.27 MG/DL (0.60-1.10); GLUCOSE 115 MG/DL (70-104); SODIUM 143 MMOL/L (135-145); TOTAL CARBON DIOXIDE 39.7 MMOL/L (24-32); TOTAL PROTEIN 6.1 G/DL (6.4-8.2); eCRCL 47 ML/MIN; eGFR 54 ML/MIN
[2024-05-01 09:03] LABS: POTASSIUM 4.7 MMOL/L (3.5-5.1)
[2024-05-01 14:47] LABS: ABG BASE EXCESS 11.2 mmol/L (-2.0-3.0); ABG HCO3 39.7 mmol/L (21.0-28.0); ABG OXYGEN SATURATION 93.6 % (94.0-98.0); ABG PCO2 (T) 83.3 mmHg (35.0-48.0); ABG PH (T) 7.293 (7.350-7.450); ABG PO2 (T) 74.7 mmHg (83.0-108.0); ALLEN'S TEST POSITIVE; FCOHb 1.2 % (0.5-1.5); FHHb 6.3 % (0.0-5.0); FLOW 5 L/min; FMetHb 0.3 % (0.0-1.5); FO2Hb 92.2 % (94.0-98.0); MODE NASAL CANNULA; PATIENT TEMPERATURE 36.4; TOTAL HEMOGLOBIN 8.4 G/dl (13.5-17.5)
[2024-05-01 16:53] LABS: ABG HCO3 41.2 mmol/L (21.0-28.0); ABG OXYGEN SATURATION 96.2 % (94.0-98.0); ABG PCO2 (T) 79.6 mmHg (35.0-48.0); ABG PH (T) 7.328 (7.350-7.450); ABG PO2 (T) 85.4 mmHg (83.0-108.0); ALLEN'S TEST POSITIVE; FCOHb 0.9 % (0.5-1.5); FHHb 3.8 % (0.0-5.0); FMetHb 0.3 % (0.0-1.5); MODE MASK - BIPAP; PATIENT TEMPERATURE 36.3; RESPIRATORY RATE 10 b/min; TIDAL VOLUME 460 mL; TOTAL HEMOGLOBIN 8.3 G/dl (13.5-17.5)
[2024-05-01] MEDS: ampicillin inj 2 GM in normal saline 100ml IV soln 100 ML IV SCH (20:06)
[2024-05-01] MEDS: furosemide 20 MG/2 ML vial IV SCH (20:07)
[2024-05-02] VITALS (18 sets, daily range): BP systolic 112–148; BP diastolic 53–77; PULSE 62–124; RESP 17–34; TEMP 97.3–98.9; O2SAT 91–100
[2024-05-02] MEDS: haloperidol lactate 5mg/ml inj IM ONE (01:13)
[2024-05-02 05:28] LABS: BASOPHILS % (AUTO) 0.1 % (0-1); EOSINOPHILS % (AUTO) 0.1 % (0-6); HEMATOCRIT 23.1 % (42.0-52.0); HEMOGLOBIN 7.2 g/dl (14.0-17.9); LYMPHOCYTES # (AUTO) 0.6 X10'3 (1.1-4.8); LYMPHOCYTES % (AUTO) 4.4 % (21-51); MEAN CORPUSCULAR HEMOGLOBIN 32.1 PG (27.0-31.0); MEAN CORPUSCULAR HGB CONC 31.1 g/dL (33.0-36.5); MEAN CORPUSCULAR VOLUME 103.4 FL (78-98); MEAN PLATELET VOLUME 8.8 FL (7.4-10.4); MONOCYTES # (AUTO) 1.1 X10'3 (0-0.9); MONOCYTES % (AUTO) 7.9 % (2-12); NEUTROPHILS # (AUTO) 11.7 X10'3 (1.8-7.7); NEUTROPHILS % (AUTO) 87.5 % (42-75); PLATELET COUNT 258 X10'3 (140-440); RED BLOOD COUNT 2.24 X10'6 (4.70-6.10); RED CELL DISTRIBUTION WIDTH 14.2 % (11.5-14.5); WHITE BLOOD COUNT 13.4 X10'3 (4.5-11.0)
[2024-05-02 05:37] LABS: ALBUMIN 2.6 G/DL (3.4-5.0); ANION GAP -2 (8-16); BLOOD UREA NITROGEN 74 MG/DL (7-18); BUN/CREATININE RATIO 68.5 (10.0-20.0); CALCIUM 8.3 MG/DL (8.5-10.1); CHLORIDE 106 MMOL/L (99-107); CREATININE 1.08 MG/DL (0.60-1.10); GLUCOSE 111 MG/DL (70-104); POTASSIUM 3.9 MMOL/L (3.5-5.1); SODIUM 148 MMOL/L (135-145); eCRCL 55 ML/MIN; eGFR 66 ML/MIN
[2024-05-02 08:48] LABS: ABG BASE EXCESS 12.3 mmol/L (-2.0-3.0); ABG HCO3 39.3 mmol/L (21.0-28.0); ABG OXYGEN SATURATION 96.1 % (94.0-98.0); ABG PCO2 (T) 68.5 mmHg (35.0-48.0); ABG PH (T) 7.373 (7.350-7.450); ABG PO2 (T) 83.2 mmHg (83.0-108.0); FCOHb 1.1 % (0.5-1.5); FHHb 3.8 % (0.0-5.0); FMetHb 0.3 % (0.0-1.5); FO2Hb 94.8 % (94.0-98.0); MODE MASK - BIPAP; PATIENT TEMPERATURE 36.3; RESPIRATORY RATE 16 b/min; TIDAL VOLUME 627 mL; TOTAL HEMOGLOBIN 7.7 G/dl (13.5-17.5)
[2024-05-03] VITALS (23 sets, daily range): BP systolic 117–124; BP diastolic 56–76; PULSE 80–119; RESP 16–34; TEMP 96.8–97.9; O2SAT 91–100
[2024-05-03] MEDS: furosemide 40mg/4ml inj IV ONE (07:59)
[2024-05-03 08:59] LABS: ABG BASE EXCESS 11.1 mmol/L (-2.0-3.0); ABG HCO3 38.5 mmol/L (21.0-28.0); ABG OXYGEN SATURATION 93.9 % (94.0-98.0); ABG PCO2 (T) 69.3 mmHg (35.0-48.0); ABG PH (T) 7.363 (7.350-7.450); ABG PO2 (T) 73.4 mmHg (83.0-108.0); ALLEN'S TEST POSITIVE; FCOHb 0.8 % (0.5-1.5); FMetHb 0.3 % (0.0-1.5); FO2Hb 92.9 % (94.0-98.0); MODE AVAPS BIPAP; PEEP 6 cm H2O; TIDAL VOLUME 550 mL; TOTAL HEMOGLOBIN 10.2 G/dl (13.5-17.5)
[2024-05-03 09:46] LABS: ALLEN'S TEST POSITIVE
[2024-05-03 15:07] LABS: ABG BASE EXCESS 9.3 mmol/L (-2.0-3.0); ABG HCO3 35.9 mmol/L (21.0-28.0); ABG OXYGEN SATURATION 90.4 % (94.0-98.0); ABG PCO2 (T) 63.2 mmHg (35.0-48.0); ABG PH (T) 7.372 (7.350-7.450); ABG PO2 (T) 66.1 mmHg (83.0-108.0); ALLEN'S TEST POSITIVE; FCOHb 0.5 % (0.5-1.5); FHHb 9.5 % (0.0-5.0); FMetHb 0.3 % (0.0-1.5); FO2Hb 89.7 % (94.0-98.0); MODE MASK - BIPAP; PEEP 8 cm H2O; RESPIRATORY RATE 14 b/min; TIDAL VOLUME 550 mL; TOTAL HEMOGLOBIN 8.6 G/dl (13.5-17.5)
[2024-05-03] MEDS: acetaZOLAMIDE 250mg tablet PO SCH (20:30)
[2024-05-04] VITALS (20 sets, daily range): BP systolic 104–153; BP diastolic 57–81; PULSE 83–111; RESP 17–32; TEMP 97–98.6; O2SAT 91–97
[2024-05-04] MEDS: albuterol 2.5 MG/3 ML nebule NEB PRN (08:00)
[2024-05-04] MEDS: furosemide 20 MG/2 ML vial IV SCH (10:07)
[2024-05-04 12:02] LABS: ABG BASE EXCESS 12.3 mmol/L (-2.0-3.0); ABG HCO3 38.3 mmol/L (21.0-28.0); ABG PCO2 (T) 61.1 mmHg (35.0-48.0); ABG PH (T) 7.414 (7.350-7.450); ABG PO2 (T) 66.9 mmHg (83.0-108.0); ALLEN'S TEST POSITIVE; FCOHb 0.7 % (0.5-1.5); FHHb 6.9 % (0.0-5.0); FMetHb 0.3 % (0.0-1.5); FO2Hb 92.1 % (94.0-98.0); MODE MASK - BIPAP; PATIENT TEMPERATURE 36.8; RESPIRATORY RATE 12 b/min; TIDAL VOLUME 475 mL; TOTAL HEMOGLOBIN 7.2 G/dl (13.5-17.5)
[2024-05-04] MEDS ORDERED: mag hydrox/Alum hydrox/simeth 30ml oral suspension PO PRN (14:55)
[2024-05-04] MEDS ORDERED: magnesium hydroxide 30ml (MOM) UD suspension PO PRN (14:55)
[2024-05-04] MEDS ORDERED: acetaminophen 325mg tablet PO PRN ×2 (14:55)
[2024-05-04] MEDS ORDERED: ondansetron/PF 4mg/2ml inj IV PRN (14:55)
[2024-05-04] MEDS: dextrose 5%-lactated ringers 1,000 ML IV SCH (15:04)
[2024-05-04] MEDS: docusate sod 100mg capsule PO SCH (19:03)
[2024-05-04] MEDS: K and/or MAG REPLACEMENT MC SCH (19:35)
[2024-05-04] MEDS: LORazepam 2 mg/ml vial IV ONE (23:27)
[2024-05-05] VITALS (22 sets, daily range): BP systolic 136–154; BP diastolic 41–94; PULSE 84–131; RESP 13–36; TEMP 97.1–98.7; O2SAT 91–98
[2024-05-05 01:26] LABS: BASOPHILS % (AUTO) 0.3 % (0-1); EOSINOPHILS % (AUTO) 0 % (0-6); LYMPHOCYTES # (AUTO) 0.4 X10'3 (1.1-4.8); LYMPHOCYTES % (AUTO) 3.9 % (21-51); MEAN CORPUSCULAR HEMOGLOBIN 33.5 PG (27.0-31.0); MEAN CORPUSCULAR HGB CONC 32.5 g/dL (33.0-36.5); MEAN CORPUSCULAR VOLUME 103.1 FL (78-98); MEAN PLATELET VOLUME 8.5 FL (7.4-10.4); MONOCYTES # (AUTO) 0.7 X10'3 (0-0.9); NEUTROPHILS # (AUTO) 10.3 X10'3 (1.8-7.7); NEUTROPHILS % (AUTO) 89.8 % (42-75); PLATELET COUNT 242 X10'3 (140-440); RED BLOOD COUNT 1.93 X10'6 (4.70-6.10); RED CELL DISTRIBUTION WIDTH 14.2 % (11.5-14.5); WHITE BLOOD COUNT 11.5 X10'3 (4.5-11.0)
[2024-05-05 01:40] LABS: HEMATOCRIT 19.9 % (42.0-52.0); HEMOGLOBIN 6.5 g/dl (14.0-17.9)
[2024-05-05 01:53] LABS: ALANINE AMINOTRANSFERASE 27 U/L (12-78); ALBUMIN 2.6 G/DL (3.4-5.0); ALBUMIN/GLOBULIN RATIO 0.9 (1.1-1.5); ALKALINE PHOSPHATASE 65 IU/L (46-116); ANION GAP 4 (8-16); ASPARTATE AMINO TRANSFERASE 22 U/L (10-37); BILIRUBIN,TOTAL 0.6 MG/DL (0.1-1.0); BLOOD UREA NITROGEN 71 MG/DL (7-18); BUN/CREATININE RATIO 58.2 (10.0-20.0); CALCIUM 8.5 MG/DL (8.5-10.1); CHLORIDE 114 MMOL/L (99-107); CREATININE 1.22 MG/DL (0.60-1.10); FERRITIN 58 NG/ML (26-388); GLUCOSE 148 MG/DL (70-104); POTASSIUM 3.1 MMOL/L (3.5-5.1); PRO BRAIN NATRIURETIC PEPTIDE 4052 PG/ML (0-450); TOTAL CARBON DIOXIDE 39.1 MMOL/L (24-32); TOTAL PROTEIN 5.6 G/DL (6.4-8.2); eCRCL 49 ML/MIN; eGFR 57 ML/MIN
[2024-05-05 02:30] LABS: SODIUM 157 MMOL/L (135-145)
[2024-05-05 03:02] LABS: % IRON SATURATION 17 % (11-46); IRON 36 UG/DL (53-167); TOTAL IRON BINDING CAPACITY 206 UG/DL (259-388)
[2024-05-05] MEDS: dextrose 5%-water 1,000 ML IV SCH (03:40)
[2024-05-05] MEDS: potassium Cl 40MEQ/1/2NS 520ml 520 ML IV PRN (04:45)
[2024-05-05] MEDS: pantoprazole 40 MG vial IV SCH (07:30)
[2024-05-05 08:02] LABS: HEMATOCRIT 25.3 % (42.0-52.0); HEMOGLOBIN 7.9 g/dl (14.0-17.9); MEAN CORPUSCULAR HEMOGLOBIN 32.2 PG (27.0-31.0); MEAN CORPUSCULAR HGB CONC 31.4 g/dL (33.0-36.5); MEAN CORPUSCULAR VOLUME 102.5 FL (78-98); MEAN PLATELET VOLUME 8.8 FL (7.4-10.4); PLATELET COUNT 241 X10'3 (140-440); RED BLOOD COUNT 2.47 X10'6 (4.70-6.10); RED CELL DISTRIBUTION WIDTH 15.9 % (11.5-14.5); WHITE BLOOD COUNT 13.4 X10'3 (4.5-11.0)
[2024-05-05 08:58] LABS: ALANINE AMINOTRANSFERASE 25 U/L (12-78); ALBUMIN 2.7 G/DL (3.4-5.0); ALBUMIN/GLOBULIN RATIO 0.9 (1.1-1.5); ALKALINE PHOSPHATASE 66 IU/L (46-116); ANION GAP 9 (8-16); ASPARTATE AMINO TRANSFERASE 29 U/L (10-37); BILIRUBIN,TOTAL 0.8 MG/DL (0.1-1.0); BLOOD UREA NITROGEN 69 MG/DL (7-18); CHLORIDE 113 MMOL/L (99-107); GLUCOSE 118 MG/DL (70-104); POTASSIUM 3.4 MMOL/L (3.5-5.1); TOTAL PROTEIN 5.7 G/DL (6.4-8.2)
[2024-05-05 09:18] LABS: BUN/CREATININE RATIO 56.6 (10.0-20.0); CALCIUM 8.4 MG/DL (8.5-10.1); CREATININE 1.22 MG/DL (0.60-1.10); eCRCL 49 ML/MIN; eGFR 57 ML/MIN
[2024-05-05 10:21] LABS: SODIUM 156 MMOL/L (135-145)
[2024-05-05 11:12] LABS: ABG BASE EXCESS 11.2 mmol/L (-2.0-3.0); ABG HCO3 36.7 mmol/L (21.0-28.0); ABG OXYGEN SATURATION 91.6 % (94.0-98.0); ABG PCO2 (T) 55.4 mmHg (35.0-48.0); ABG PH (T) 7.439 (7.350-7.450); ABG PO2 (T) 62.5 mmHg (83.0-108.0); ALLEN'S TEST POSITIVE; FCOHb 1.5 % (0.5-1.5); FHHb 8.2 % (0.0-5.0); FLOW 30 L/min; FMetHb 0.3 % (0.0-1.5); MODE HIGH FLOW; PATIENT TEMPERATURE 36.9; TOTAL HEMOGLOBIN 8.8 G/dl (13.5-17.5)
[2024-05-05 12:17] LABS: HEMOGLOBIN 8.3 g/dl (14.0-17.9); MEAN CORPUSCULAR HEMOGLOBIN 32.3 PG (27.0-31.0); MEAN CORPUSCULAR HGB CONC 31.9 g/dL (33.0-36.5); MEAN CORPUSCULAR VOLUME 101.5 FL (78-98); MEAN PLATELET VOLUME 8.7 FL (7.4-10.4); PLATELET COUNT 247 X10'3 (140-440); RED BLOOD COUNT 2.56 X10'6 (4.70-6.10); RED CELL DISTRIBUTION WIDTH 15.6 % (11.5-14.5); WHITE BLOOD COUNT 12.3 X10'3 (4.5-11.0)
[2024-05-05 14:03] LABS: MAGNESIUM 2.1 MG/DL (1.5-2.4); POTASSIUM 3.4 MMOL/L (3.5-5.1)
[2024-05-05 16:10] LABS: HEMATOCRIT 25.3 % (42.0-52.0); MEAN CORPUSCULAR HEMOGLOBIN 32.2 PG (27.0-31.0); MEAN CORPUSCULAR HGB CONC 31.7 g/dL (33.0-36.5); MEAN CORPUSCULAR VOLUME 101.5 FL (78-98); MEAN PLATELET VOLUME 8.3 FL (7.4-10.4); PLATELET COUNT 236 X10'3 (140-440); RED BLOOD COUNT 2.49 X10'6 (4.70-6.10); RED CELL DISTRIBUTION WIDTH 16.1 % (11.5-14.5); WHITE BLOOD COUNT 11.5 X10'3 (4.5-11.0)
[2024-05-05] MEDS: LORazepam 2 mg/ml vial IV PRN (17:25)
[2024-05-05 20:24] LABS: HEMATOCRIT 25.2 % (42.0-52.0); MEAN CORPUSCULAR HEMOGLOBIN 32.5 PG (27.0-31.0); MEAN CORPUSCULAR HGB CONC 31.9 g/dL (33.0-36.5); MEAN CORPUSCULAR VOLUME 102.1 FL (78-98); MEAN PLATELET VOLUME 8.3 FL (7.4-10.4); PLATELET COUNT 246 X10'3 (140-440); RED BLOOD COUNT 2.47 X10'6 (4.70-6.10); RED CELL DISTRIBUTION WIDTH 16.4 % (11.5-14.5); WHITE BLOOD COUNT 12.2 X10'3 (4.5-11.0)
[2024-05-05] MEDS: metoprolol tartrate 1mg/ml inj IV ONE (22:19)
[2024-05-06] VITALS (20 sets, daily range): BP systolic 108–164; BP diastolic 58–100; PULSE 74–130; RESP 16–34; TEMP 96.3–97.8; O2SAT 88–99
[2024-05-06 03:37] LABS: ABG BASE EXCESS 8.9 mmol/L (-2.0-3.0); ABG HCO3 34.6 mmol/L (21.0-28.0); ABG OXYGEN SATURATION 95.2 % (94.0-98.0); ABG PH (T) 7.409 (7.350-7.450); ABG PO2 (T) 78.4 mmHg (83.0-108.0); ALLEN'S TEST Modified; FCOHb 1.6 % (0.5-1.5); FHHb 4.7 % (0.0-5.0); FMetHb 0.3 % (0.0-1.5); FO2Hb 93.4 % (94.0-98.0); MODE MASK - BIPAP; RESPIRATORY RATE 12 b/min; TIDAL VOLUME 475 mL; TOTAL HEMOGLOBIN 8.1 G/dl (13.5-17.5)
[2024-05-06 05:11] LABS: BASOPHILS % (AUTO) 0 % (0-1); EOSINOPHILS % (AUTO) 0.1 % (0-6); HEMOGLOBIN 7.8 g/dl (14.0-17.9); LYMPHOCYTES # (AUTO) 0.5 X10'3 (1.1-4.8); MEAN CORPUSCULAR HEMOGLOBIN 33.2 PG (27.0-31.0); MEAN CORPUSCULAR HGB CONC 32.7 g/dL (33.0-36.5); MEAN CORPUSCULAR VOLUME 101.6 FL (78-98); MEAN PLATELET VOLUME 8.8 FL (7.4-10.4); MONOCYTES # (AUTO) 1.4 X10'3 (0-0.9); MONOCYTES % (AUTO) 10.2 % (2-12); NEUTROPHILS # (AUTO) 11.6 X10'3 (1.8-7.7); NEUTROPHILS % (AUTO) 85.7 % (42-75); PLATELET COUNT 232 X10'3 (140-440); RED BLOOD COUNT 2.36 X10'6 (4.70-6.10); RED CELL DISTRIBUTION WIDTH 16.2 % (11.5-14.5); WHITE BLOOD COUNT 13.6 X10'3 (4.5-11.0)
[2024-05-06 06:11] LABS: ALANINE AMINOTRANSFERASE 30 U/L (12-78); ALBUMIN 2.8 G/DL (3.4-5.0); ALKALINE PHOSPHATASE 67 IU/L (46-116); ANION GAP 5 (8-16); ASPARTATE AMINO TRANSFERASE 26 U/L (10-37); BILIRUBIN,TOTAL 0.8 MG/DL (0.1-1.0); BLOOD UREA NITROGEN 60 MG/DL (7-18); BUN/CREATININE RATIO 45.1 (10.0-20.0); CALCIUM 8.2 MG/DL (8.5-10.1); CHLORIDE 114 MMOL/L (99-107); CREATININE 1.33 MG/DL (0.60-1.10); GLUCOSE 125 MG/DL (70-104); POTASSIUM 3.7 MMOL/L (3.5-5.1); TOTAL CARBON DIOXIDE 36.5 MMOL/L (24-32); TOTAL PROTEIN 5.7 G/DL (6.4-8.2); eCRCL 45 ML/MIN; eGFR 52 ML/MIN
[2024-05-06 06:27] LABS: SODIUM 155 MMOL/L (135-145)
[2024-05-06] MEDS: methylPREDNISolone sod succ/PF 40mg inj. IV SCH (07:40)
[2024-05-06] MEDS ORDERED: metoprolol tartrate 1mg/ml inj IV ONE (11:50)
[2024-05-06] MEDS: metoprolol tartrate 1mg/ml inj IV ONE (12:56)
[2024-05-06] MEDS ORDERED: hydrALAZINE 20mg/ml inj. IV PRN (21:40)
[2024-05-07] VITALS (23 sets, daily range): BP systolic 135–150; BP diastolic 69–90; PULSE 83–129; RESP 20–37; TEMP 97–97.6; O2SAT 85–99
[2024-05-07 05:53] LABS: BASOPHILS % (AUTO) 0.2 % (0-1); EOSINOPHILS % (AUTO) 0.2 % (0-6); HEMATOCRIT 23.1 % (42.0-52.0); HEMOGLOBIN 7.6 g/dl (14.0-17.9); LYMPHOCYTES # (AUTO) 0.5 X10'3 (1.1-4.8); LYMPHOCYTES % (AUTO) 4.8 % (21-51); MEAN CORPUSCULAR HEMOGLOBIN 34.1 PG (27.0-31.0); MEAN CORPUSCULAR VOLUME 103.3 FL (78-98); MEAN PLATELET VOLUME 8.5 FL (7.4-10.4); MONOCYTES % (AUTO) 9.8 % (2-12); PLATELET COUNT 178 X10'3 (140-440); RED BLOOD COUNT 2.24 X10'6 (4.70-6.10); RED CELL DISTRIBUTION WIDTH 17.3 % (11.5-14.5); WHITE BLOOD COUNT 10.6 X10'3 (4.5-11.0)
[2024-05-07 06:01] LABS: ALBUMIN 2.8 G/DL (3.4-5.0); ANION GAP 2 (8-16); BLOOD UREA NITROGEN 49 MG/DL (7-18); CALCIUM 8.1 MG/DL (8.5-10.1); CHLORIDE 113 MMOL/L (99-107); CREATININE 1.14 MG/DL (0.60-1.10); GLUCOSE 108 MG/DL (70-104); POTASSIUM 3.8 MMOL/L (3.5-5.1); SODIUM 154 MMOL/L (135-145); TOTAL CARBON DIOXIDE 38.8 MMOL/L (24-32); eCRCL 52 ML/MIN; eGFR 62 ML/MIN
[2024-05-07] MEDS: enoxaparin 100mg/ml syringe SUBCUT ONE (11:59)
[2024-05-07] MEDS: metoprolol tartrate 1mg/ml inj IV ONE (12:02)
[2024-05-07] MEDS ORDERED: Dextrose 10%-water IV solution 1,000 ML IV PRN (13:15)
[2024-05-07 13:53] LABS: MAGNESIUM 2.2 MG/DL (1.5-2.4); PHOSPHORUS 4.1 MG/DL (2.3-4.5); PREALBUMIN 15.4 MG/DL (19-36); TRIGLYCERIDES 153 MG/DL (20-135)
[2024-05-07] MEDS: metoprolol tartrate 1mg/ml inj IV SCH (19:51)
[2024-05-07] MEDS: enoxaparin 80mg/0.8ml syringe SUBCUT SCH (19:52)
[2024-05-07] MEDS ORDERED: fat emulsion 20% inj. 100 ML IV SCH (20:00)
[2024-05-07] MEDS ORDERED: ZINC/COPPER/MANGANESE/SELENIUM 0.5 ML, chromic chloride inj. 5 MCG in AMINO ACIDS 5 %/D... IV SCH (20:00)
[2024-05-08] VITALS (20 sets, daily range): BP systolic 129–146; BP diastolic 65–93; PULSE 93–129; RESP 21–36; TEMP 96.7–98.1; O2SAT 90–95
[2024-05-08] MEDS ORDERED: acetaminophen 325mg/10.15ml oral unit dose solution NG PRN ×2 (07:47→07:48)
[2024-05-08] MEDS ORDERED: traZODone 150mg tablet NG SCH (07:50)
[2024-05-08] MEDS ORDERED: magnesium hydroxide 30ml (MOM) UD suspension NG PRN (07:50)
[2024-05-08] MEDS ORDERED: mag hydrox/Alum hydrox/simeth 30ml oral suspension NG PRN (07:50)
[2024-05-08] MEDS: ferrous sulfate 300mg/5ml UD oral liquid NG SCH (08:39)
[2024-05-08] MEDS: ascorbic acid 500mg tablet NG SCH (08:40)
[2024-05-08] MEDS: docusate sodium 100mg/10ml UD cup NG SCH (08:40)
[2024-05-08] MEDS: atorvastatin 20mg tablet NG SCH (08:41)
[2024-05-08] MEDS: folic acid 1mg tablet NG SCH (08:41)
[2024-05-08 09:46] LABS: BASOPHILS % (AUTO) 0.1 % (0-1); EOSINOPHILS % (AUTO) 0.1 % (0-6); HEMATOCRIT 24.7 % (42.0-52.0); HEMOGLOBIN 7.9 g/dl (14.0-17.9); LYMPHOCYTES # (AUTO) 0.5 X10'3 (1.1-4.8); LYMPHOCYTES % (AUTO) 4.5 % (21-51); MEAN CORPUSCULAR HEMOGLOBIN 33.2 PG (27.0-31.0); MEAN CORPUSCULAR HGB CONC 31.9 g/dL (33.0-36.5); MEAN PLATELET VOLUME 8.9 FL (7.4-10.4); MONOCYTES # (AUTO) 0.9 X10'3 (0-0.9); MONOCYTES % (AUTO) 8.8 % (2-12); NEUTROPHILS % (AUTO) 86.5 % (42-75); PLATELET COUNT 147 X10'3 (140-440); RED BLOOD COUNT 2.38 X10'6 (4.70-6.10); RED CELL DISTRIBUTION WIDTH 17.5 % (11.5-14.5); WHITE BLOOD COUNT 10.4 X10'3 (4.5-11.0)
[2024-05-08 10:12] LABS: ALANINE AMINOTRANSFERASE 31 U/L (12-78); ALBUMIN 2.9 G/DL (3.4-5.0); ALBUMIN/GLOBULIN RATIO 1.1 (1.1-1.5); ALKALINE PHOSPHATASE 70 IU/L (46-116); ANION GAP 1 (8-16); ASPARTATE AMINO TRANSFERASE 18 U/L (10-37); BLOOD UREA NITROGEN 43 MG/DL (7-18); BUN/CREATININE RATIO 37.4 (10.0-20.0); CHLORIDE 112 MMOL/L (99-107); CREATININE 1.15 MG/DL (0.60-1.10); GLUCOSE 110 MG/DL (70-104); POTASSIUM 3.9 MMOL/L (3.5-5.1); SODIUM 153 MMOL/L (135-145); TOTAL CARBON DIOXIDE 39.6 MMOL/L (24-32); TOTAL PROTEIN 5.6 G/DL (6.4-8.2); eCRCL 52 ML/MIN; eGFR 61 ML/MIN
[2024-05-08] MEDS: acetaminophen 1,000mg/100ml IV 100 ML IV ONE (20:27)
[2024-05-08] MEDS: traZODone 150mg tablet NG SCH (20:49)
[2024-05-09] VITALS (20 sets, daily range): BP systolic 141–157; BP diastolic 42–91; PULSE 60–125; RESP 17–30; TEMP 96.6–98; O2SAT 88–100
[2024-05-09] MEDS: metoprolol tartrate 1mg/ml inj IV ONE (02:03)
[2024-05-09] MEDS: haloperidol lactate 5mg/ml inj IM ONE (07:53)
[2024-05-09] MEDS: methylPREDNISolone sod succ/PF 40mg inj. IV SCH (07:53)
[2024-05-09 09:27] LABS: BASOPHILS % (AUTO) 0.2 % (0-1); EOSINOPHILS % (AUTO) 0.1 % (0-6); HEMATOCRIT 24.4 % (42.0-52.0); HEMOGLOBIN 7.8 g/dl (14.0-17.9); LYMPHOCYTES # (AUTO) 0.4 X10'3 (1.1-4.8); LYMPHOCYTES % (AUTO) 3.5 % (21-51); MEAN CORPUSCULAR HEMOGLOBIN 33.3 PG (27.0-31.0); MEAN CORPUSCULAR HGB CONC 32.1 g/dL (33.0-36.5); MEAN CORPUSCULAR VOLUME 103.4 FL (78-98); MEAN PLATELET VOLUME 8.3 FL (7.4-10.4); MONOCYTES # (AUTO) 0.7 X10'3 (0-0.9); MONOCYTES % (AUTO) 6.3 % (2-12); NEUTROPHILS # (AUTO) 10.2 X10'3 (1.8-7.7); NEUTROPHILS % (AUTO) 89.9 % (42-75); PLATELET COUNT 120 X10'3 (140-440); RED BLOOD COUNT 2.36 X10'6 (4.70-6.10); RED CELL DISTRIBUTION WIDTH 17.2 % (11.5-14.5); WHITE BLOOD COUNT 11.4 X10'3 (4.5-11.0)
[2024-05-09 09:48] LABS: ALANINE AMINOTRANSFERASE 27 U/L (12-78); ALBUMIN 2.7 G/DL (3.4-5.0); ALKALINE PHOSPHATASE 71 IU/L (46-116); ANION GAP 1 (8-16); ASPARTATE AMINO TRANSFERASE 14 U/L (10-37); BILIRUBIN,TOTAL 0.7 MG/DL (0.1-1.0); BLOOD UREA NITROGEN 38 MG/DL (7-18); BUN/CREATININE RATIO 36.5 (10.0-20.0); CALCIUM 7.6 MG/DL (8.5-10.1); CHLORIDE 110 MMOL/L (99-107); CREATININE 1.04 MG/DL (0.60-1.10); GLUCOSE 129 MG/DL (70-104); MAGNESIUM 2.1 MG/DL (1.5-2.4); PHOSPHORUS 3.9 MG/DL (2.3-4.5); POTASSIUM 3.7 MMOL/L (3.5-5.1); PRO BRAIN NATRIURETIC PEPTIDE 5070 PG/ML (0-450); SODIUM 150 MMOL/L (135-145); TOTAL CARBON DIOXIDE 39.5 MMOL/L (24-32); TOTAL PROTEIN 5.3 G/DL (6.4-8.2); eCRCL 58 ML/MIN; eGFR 69 ML/MIN
[2024-05-09] MEDS: furosemide 40mg/4ml inj IV ONE (10:58)
[2024-05-09] MEDS ORDERED: Dextrose 10%-water IV solution 1,000 ML IV PRN (12:10)
[2024-05-09] MEDS: [UNRECOGNIZED DRUG - OTHER] IV SCH (14:00)
[2024-05-09] MEDS: ZINC IV SCH (14:00)
[2024-05-09] MEDS: CHROMIC CHLORIDE IV SCH (14:00)
[2024-05-09] MEDS: COPPER IV SCH (14:00)
[2024-05-09] MEDS: MANGANESE IV SCH (14:00)
[2024-05-09] MEDS: SELENIUM IV SCH (14:00)
[2024-05-09] MEDS: [UNRECOGNIZED DRUG - REMARK] IV SCH (14:04)
[2024-05-09] MEDS: fat emulsion 20% inj. 100 ML IV SCH (14:14)
[2024-05-09] MEDS: metoprolol tartrate 1mg/ml inj IV SCH (18:08)
[2024-05-09] MEDS: furosemide 20 MG/2 ML vial IV SCH (19:35)
[2024-05-10] VITALS (18 sets, daily range): BP systolic 115–160; BP diastolic 50–72; PULSE 77–122; RESP 25–34; TEMP 96.8–97.7; O2SAT 92–99
[2024-05-10 10:58] LABS: ALANINE AMINOTRANSFERASE 25 U/L (12-78); ALBUMIN 2.6 G/DL (3.4-5.0); ALKALINE PHOSPHATASE 65 IU/L (46-116); ANION GAP -3 (8-16); ASPARTATE AMINO TRANSFERASE 17 U/L (10-37); BILIRUBIN,TOTAL 0.7 MG/DL (0.1-1.0); BLOOD UREA NITROGEN 33 MG/DL (7-18); BUN/CREATININE RATIO 36.7 (10.0-20.0); CALCIUM 7.5 MG/DL (8.5-10.1); CHLORIDE 107 MMOL/L (99-107); GLUCOSE 188 MG/DL (70-104); MAGNESIUM 1.6 MG/DL (1.5-2.4); PHOSPHORUS 2.4 MG/DL (2.3-4.5); PREALBUMIN 11.7 MG/DL (19-36); PRO BRAIN NATRIURETIC PEPTIDE 3697 PG/ML (0-450); SODIUM 149 MMOL/L (135-145); TOTAL PROTEIN 5.3 G/DL (6.4-8.2); TRIGLYCERIDES 72 MG/DL (20-135); eCRCL 66 ML/MIN; eGFR 81 ML/MIN
[2024-05-10 11:07] LABS: TOTAL CARBON DIOXIDE 44.9 MMOL/L (24-32)
[2024-05-10 11:16] LABS: BASOPHILS % (AUTO) 0.1 % (0-1); EOSINOPHILS % (AUTO) 0.3 % (0-6); HEMATOCRIT 24.7 % (42.0-52.0); HEMOGLOBIN 7.8 g/dl (14.0-17.9); LYMPHOCYTES # (AUTO) 0.2 X10'3 (1.1-4.8); LYMPHOCYTES % (AUTO) 1.4 % (21-51); MEAN CORPUSCULAR HEMOGLOBIN 32.4 PG (27.0-31.0); MEAN CORPUSCULAR HGB CONC 31.6 g/dL (33.0-36.5); MEAN CORPUSCULAR VOLUME 102.7 FL (78-98); MEAN PLATELET VOLUME 9.2 FL (7.4-10.4); MONOCYTES # (AUTO) 0.6 X10'3 (0-0.9); NEUTROPHILS # (AUTO) 11.8 X10'3 (1.8-7.7); NEUTROPHILS % (AUTO) 93.2 % (42-75); PLATELET COUNT 92 X10'3 (140-440); RED CELL DISTRIBUTION WIDTH 16.4 % (11.5-14.5); WHITE BLOOD COUNT 12.7 X10'3 (4.5-11.0)
[2024-05-10] MEDS ORDERED: magnesium Cl slow-release 64mg tablet PO PRN (11:25)
[2024-05-10] MEDS ORDERED: potassium Cl 20 mEq SR tablet PO PRN ×2 (11:25)
[2024-05-10] MEDS: acetaZOLAMIDE IV 500mg inj IV ONE (13:05)
[2024-05-10] MEDS ORDERED: DEXTROSE 15 GM of carb/4 tabs (each vial/BOTTLE has 4 tablets) PO PRN ×2 (14:45)
[2024-05-10] MEDS ORDERED: dextrose 50%-water 50ml dispensing syringe IV PRN (14:45)
[2024-05-10] MEDS ORDERED: glucagon, human recombinant 1mg kit SUBCUT PRN (14:45)
[2024-05-10] MEDS: ZINC IV SCH (15:47)
[2024-05-10] MEDS: CHROMIC CHLORIDE IV SCH (15:47)
[2024-05-10] MEDS: SELENIUM IV SCH (15:47)
[2024-05-10] MEDS: MANGANESE IV SCH (15:47)
[2024-05-10] MEDS: COPPER IV SCH (15:47)
[2024-05-10] MEDS: [UNRECOGNIZED DRUG - OTHER] IV SCH (15:47)
[2024-05-10] MEDS: potassium Cl 40MEQ/1/2NS 520ml 520 ML IV PRN (15:56)
[2024-05-10] MEDS: metoprolol tartrate 1mg/ml inj IV SCH (17:34)
[2024-05-10] MEDS: INSULIN LISPRO 100 UNIT/ML INSULN.PEN MULTI-DOSE SQ SCH (17:36)
[2024-05-10] MEDS ORDERED: K and/or MAG REPLACEMENT MC SCH (20:00)
[2024-05-11] VITALS (23 sets, daily range): BP systolic 106–124; BP diastolic 44–77; PULSE 65–120; RESP 16–42; TEMP 96.7–98.6; O2SAT 92–100
[2024-05-11 07:27] LABS: BASOPHILS % (AUTO) 0.1 % (0-1); EOSINOPHILS % (AUTO) 0.3 % (0-6); HEMATOCRIT 26.3 % (42.0-52.0); HEMOGLOBIN 8.1 g/dl (14.0-17.9); LYMPHOCYTES # (AUTO) 0.4 X10'3 (1.1-4.8); MEAN CORPUSCULAR HEMOGLOBIN 32.3 PG (27.0-31.0); MEAN CORPUSCULAR HGB CONC 30.9 g/dL (33.0-36.5); MEAN CORPUSCULAR VOLUME 104.8 FL (78-98); MEAN PLATELET VOLUME 9.9 FL (7.4-10.4); MONOCYTES # (AUTO) 0.9 X10'3 (0-0.9); MONOCYTES % (AUTO) 7.3 % (2-12); NEUTROPHILS # (AUTO) 11.4 X10'3 (1.8-7.7); NEUTROPHILS % (AUTO) 89.3 % (42-75); PLATELET COUNT 83 X10'3 (140-440); RED BLOOD COUNT 2.51 X10'6 (4.70-6.10); RED CELL DISTRIBUTION WIDTH 16.8 % (11.5-14.5); WHITE BLOOD COUNT 12.8 X10'3 (4.5-11.0)
[2024-05-11] MEDS ORDERED: MVI, adult No.4 with vit. K 10 ML in dextrose 5% water 500ml 500 ML IV SCH (08:00)
[2024-05-11 08:06] LABS: ALANINE AMINOTRANSFERASE 17 U/L (12-78); ALBUMIN 2.6 G/DL (3.4-5.0); ALBUMIN/GLOBULIN RATIO 0.9 (1.1-1.5); ALKALINE PHOSPHATASE 66 IU/L (46-116); ANION GAP 3 (8-16); ASPARTATE AMINO TRANSFERASE 21 U/L (10-37); BILIRUBIN,TOTAL 0.6 MG/DL (0.1-1.0); BLOOD UREA NITROGEN 40 MG/DL (7-18); BUN/CREATININE RATIO 42.1 (10.0-20.0); CALCIUM 7.5 MG/DL (8.5-10.1); CHLORIDE 106 MMOL/L (99-107); CREATININE 0.95 MG/DL (0.60-1.10); GLUCOSE 140 MG/DL (70-104); MAGNESIUM 1.4 MG/DL (1.5-2.4); PHOSPHORUS 1.4 MG/DL (2.3-4.5); POTASSIUM 3.4 MMOL/L (3.5-5.1); SODIUM 146 MMOL/L (135-145); TOTAL CARBON DIOXIDE 37.1 MMOL/L (24-32); TOTAL PROTEIN 5.4 G/DL (6.4-8.2); eCRCL 63 ML/MIN; eGFR 76 ML/MIN
[2024-05-11] MEDS: acetaZOLAMIDE IV 500mg inj IV SCH ×2 (09:43→20:38)
[2024-05-11] MEDS ORDERED: LORazepam 2 mg/ml vial IV PRN (11:55)
[2024-05-11] MEDS: INSULIN LISPRO 100 UNIT/ML INSULN.PEN MULTI-DOSE SQ SCH (13:34)
[2024-05-11] MEDS: ipratropium/albuterol 3ml nebule NEB SCH ×2 (14:29→19:19)
[2024-05-11 14:53] LABS: ABG BASE EXCESS 5.3 mmol/L (-2.0-3.0); ABG HCO3 32.2 mmol/L (21.0-28.0); ABG PH (T) 7.337 (7.350-7.450); ALLEN'S TEST POSITIVE; FCOHb 1.4 % (0.5-1.5); FHHb 4.9 % (0.0-5.0); FMetHb 0.3 % (0.0-1.5); FO2Hb 93.4 % (94.0-98.0); MODE MASK - BIPAP; PATIENT TEMPERATURE 36.3; PEEP 5 cm H2O; RESPIRATORY RATE 12 b/min; TIDAL VOLUME 475 mL
[2024-05-11] MEDS ORDERED: iohexol 350MG/ML 100ml bottle IV ONE (16:53)
[2024-05-11] MEDS: magnesium sulf-water 2g/50mL 50 ML IV PRN (17:11)
[2024-05-11] MEDS ORDERED: acetaZOLAMIDE IV 500mg inj IV SCH (20:00)
[2024-05-11] MEDS: magnesium sulf-water 4G/100mL 100 ML IV PRN (20:25)
[2024-05-11] MEDS: furosemide 20 MG/2 ML vial IV SCH (20:34)
[2024-05-11] MEDS: traZODone 50mg tablet NG SCH (21:00)
[2024-05-11] MEDS: Neutra Phos packet NG SCH (21:00)
[2024-05-12] VITALS (20 sets, daily range): BP systolic 98–138; BP diastolic 29–65; PULSE 71–115; RESP 17–39; TEMP 97.4–98.4; O2SAT 93–100
[2024-05-12 04:34] LABS: BASOPHILS % (AUTO) 0.1 % (0-1); EOSINOPHILS # (AUTO) 0.1 X10'3 (0-0.9); EOSINOPHILS % (AUTO) 1.1 % (0-6); HEMATOCRIT 24.3 % (42.0-52.0); HEMOGLOBIN 7.5 g/dl (14.0-17.9); LYMPHOCYTES # (AUTO) 0.5 X10'3 (1.1-4.8); LYMPHOCYTES % (AUTO) 4.4 % (21-51); MEAN CORPUSCULAR HEMOGLOBIN 32.1 PG (27.0-31.0); MEAN CORPUSCULAR VOLUME 103.7 FL (78-98); MEAN PLATELET VOLUME 10.2 FL (7.4-10.4); MONOCYTES % (AUTO) 8.6 % (2-12); NEUTROPHILS # (AUTO) 10.4 X10'3 (1.8-7.7); NEUTROPHILS % (AUTO) 85.8 % (42-75); PLATELET COUNT 63 X10'3 (140-440); RED BLOOD COUNT 2.34 X10'6 (4.70-6.10); RED CELL DISTRIBUTION WIDTH 16.4 % (11.5-14.5); WHITE BLOOD COUNT 12.1 X10'3 (4.5-11.0)
[2024-05-12 04:41] LABS: ALANINE AMINOTRANSFERASE 17 U/L (12-78); ALBUMIN 2.3 G/DL (3.4-5.0); ALBUMIN/GLOBULIN RATIO 0.9 (1.1-1.5); ALKALINE PHOSPHATASE 62 IU/L (46-116); ANION GAP -2 (8-16); ASPARTATE AMINO TRANSFERASE 17 U/L (10-37); BILIRUBIN,TOTAL 0.4 MG/DL (0.1-1.0); BLOOD UREA NITROGEN 45 MG/DL (7-18); BUN/CREATININE RATIO 47.9 (10.0-20.0); CALCIUM 7.4 MG/DL (8.5-10.1); CHLORIDE 106 MMOL/L (99-107); CREATININE 0.94 MG/DL (0.60-1.10); GLUCOSE 130 MG/DL (70-104); MAGNESIUM 2.1 MG/DL (1.5-2.4); POTASSIUM 3.1 MMOL/L (3.5-5.1); SODIUM 142 MMOL/L (135-145); TOTAL PROTEIN 4.9 G/DL (6.4-8.2); eCRCL 64 ML/MIN; eGFR 77 ML/MIN
[2024-05-12 04:44] LABS: PHOSPHORUS 0.9 MG/DL (2.3-4.5)
[2024-05-12] MEDS: potassium phosphate inj 30 MMOL in normal saline 250ml IV soln 250 ML IV ONE (08:02)
[2024-05-12] MEDS: DAPTOmycin inj. 750 MG in normal saline 100ml IV soln 100 ML IV SCH (11:30)
[2024-05-12] MEDS: dextrose 50%-water 50ml dispensing syringe IV PRN (19:01)
[2024-05-12] MEDS: insulin regular, human U-100 10ml vial - multi-dose SQ SCH (19:44)
[2024-05-13] VITALS (8 sets, daily range): BP systolic 95–116; BP diastolic 54–62; PULSE 110–116; RESP 22–33; TEMP 97.6–97.7; O2SAT 90–100
[2024-05-13 03:04] LABS: BASOPHILS % (AUTO) 0.1 % (0-1); EOSINOPHILS # (AUTO) 0.1 X10'3 (0-0.9); HEMOGLOBIN 7.1 g/dl (14.0-17.9); LYMPHOCYTES # (AUTO) 0.3 X10'3 (1.1-4.8); MONOCYTES # (AUTO) 0.8 X10'3 (0-0.9); RED BLOOD COUNT 2.17 X10'6 (4.70-6.10)
[2024-05-13 03:05] LABS: HEMATOCRIT 22.6 % (42.0-52.0); LYMPHOCYTES % (AUTO) 2.4 % (21-51); MEAN CORPUSCULAR HEMOGLOBIN 32.6 PG (27.0-31.0); MEAN CORPUSCULAR HGB CONC 31.2 g/dL (33.0-36.5); MEAN CORPUSCULAR VOLUME 104.2 FL (78-98); MEAN PLATELET VOLUME 10.1 FL (7.4-10.4); MONOCYTES % (AUTO) 7.3 % (2-12); NEUTROPHILS # (AUTO) 9.8 X10'3 (1.8-7.7); NEUTROPHILS % (AUTO) 89.2 % (42-75); PLATELET COUNT 57 X10'3 (140-440); RED CELL DISTRIBUTION WIDTH 16.7 % (11.5-14.5)
[2024-05-13 03:17] LABS: ALANINE AMINOTRANSFERASE 18 U/L (12-78); ALBUMIN 2.2 G/DL (3.4-5.0); ALBUMIN/GLOBULIN RATIO 0.8 (1.1-1.5); ALKALINE PHOSPHATASE 64 IU/L (46-116); ANION GAP -2 (8-16); ASPARTATE AMINO TRANSFERASE 12 U/L (10-37); BILIRUBIN,TOTAL 0.5 MG/DL (0.1-1.0); BLOOD UREA NITROGEN 50 MG/DL (7-18); BUN/CREATININE RATIO 57.5 (10.0-20.0); CALCIUM 7.1 MG/DL (8.5-10.1); CHLORIDE 104 MMOL/L (99-107); CREATININE 0.87 MG/DL (0.60-1.10); GLUCOSE 143 MG/DL (70-104); MAGNESIUM 1.9 MG/DL (1.5-2.4); PREALBUMIN 12.7 MG/DL (19-36); SODIUM 141 MMOL/L (135-145); TOTAL CARBON DIOXIDE 38.6 MMOL/L (24-32); TOTAL PROTEIN 4.8 G/DL (6.4-8.2); TRIGLYCERIDES 69 MG/DL (20-135); eCRCL 69 ML/MIN; eGFR 84 ML/MIN
[2024-05-13 03:19] LABS: POTASSIUM 2.8 MMOL/L (3.5-5.1)
[2024-05-13 09:04] LABS: PHOSPHORUS 1.4 MG/DL (2.3-4.5)
[2024-05-13] MEDS ORDERED: LORazepam 2 mg/ml vial IV PRN (10:35)
[2024-05-13] MEDS ORDERED: morphine ORAL 5MG/0.25 ML (Conc. morphine) oral syringe PO PRN (10:35)
[2024-05-13] MEDS: morphine 2 MG/ML inj. syringe IV PRN (10:50)
[2024-05-13] MEDS: scopolamine 1MG/72H patch 1 PATCH PATCH.TD.3 TD SCH (15:24)
== END 2024-05-13 19:10 ==
LOC: ER 23:30 → UNDOADMIN 04-19 02:54 → ED HOLD 04-19 02:54 → PCU 3S 04-19 16:45 → ED HOLD 04-19 16:45 → PCU 3S 05-01 15:41
PROVIDERS: ADMIT Internal Medicine Sleep Medicine; ATTEND Family Medicine
PROC: 5A0935A Assistance with Respiratory Ventilation, Less than 24 Consecutive Hours, High Flow/Velocity Cannula (ICD-10-PCS; 2024-04-24)
PROC: 5A09357 Assistance with Respiratory Ventilation, Less than 24 Consecutive Hours, Continuous Positive Airway Pressure (ICD-10-PCS; 2024-04-25)
PROC: 5A09357 Assistance with Respiratory Ventilation, Less than 24 Consecutive Hours, Continuous Positive Airway Pressure (ICD-10-PCS; 2024-04-25)
PROC: 5A09357 Assistance with Respiratory Ventilation, Less than 24 Consecutive Hours, Continuous Positive Airway Pressure (ICD-10-PCS; 2024-04-26)
PROC: 5A0945A Assistance with Respiratory Ventilation, 24-96 Consecutive Hours, High Flow/Velocity Cannula (ICD-10-PCS; 2024-04-26)
PROC: 05HY33Z Insertion of Infusion Device into Upper Vein, Percutaneous Approach (ICD-10-PCS; 2024-04-27)
PROC: 5A0935A Assistance with Respiratory Ventilation, Less than 24 Consecutive Hours, High Flow/Velocity Cannula (ICD-10-PCS; 2024-04-28)
PROC: 5A0935A Assistance with Respiratory Ventilation, Less than 24 Consecutive Hours, High Flow/Velocity Cannula (ICD-10-PCS; 2024-04-29)
PROC: 5A0935A Assistance with Respiratory Ventilation, Less than 24 Consecutive Hours, High Flow/Velocity Cannula (ICD-10-PCS; 2024-04-30)
PROC: 5A0935A Assistance with Respiratory Ventilation, Less than 24 Consecutive Hours, High Flow/Velocity Cannula (ICD-10-PCS; 2024-05-01)
PROC: 5A09457 Assistance with Respiratory Ventilation, 24-96 Consecutive Hours, Continuous Positive Airway Pressure (ICD-10-PCS; 2024-05-01)
PROC: 5A0935A Assistance with Respiratory Ventilation, Less than 24 Consecutive Hours, High Flow/Velocity Cannula (ICD-10-PCS; 2024-05-04)
PROC: 5A09357 Assistance with Respiratory Ventilation, Less than 24 Consecutive Hours, Continuous Positive Airway Pressure (ICD-10-PCS; 2024-05-04)
PROC: 5A0935A Assistance with Respiratory Ventilation, Less than 24 Consecutive Hours, High Flow/Velocity Cannula (ICD-10-PCS; 2024-05-05)
PROC: 5A09357 Assistance with Respiratory Ventilation, Less than 24 Consecutive Hours, Continuous Positive Airway Pressure (ICD-10-PCS; 2024-05-05)
PROC: 30233N1 Transfusion of Nonautologous Red Blood Cells into Peripheral Vein, Percutaneous Approach (ICD-10-PCS; 2024-05-05)
PROC: 5A0935A Assistance with Respiratory Ventilation, Less than 24 Consecutive Hours, High Flow/Velocity Cannula (ICD-10-PCS; 2024-05-06)
PROC: 5A0935A Assistance with Respiratory Ventilation, Less than 24 Consecutive Hours, High Flow/Velocity Cannula (ICD-10-PCS; 2024-05-07)
PROC: 5A09357 Assistance with Respiratory Ventilation, Less than 24 Consecutive Hours, Continuous Positive Airway Pressure (ICD-10-PCS; 2024-05-07)
PROC: 5A0935A Assistance with Respiratory Ventilation, Less than 24 Consecutive Hours, High Flow/Velocity Cannula (ICD-10-PCS; 2024-05-08)
PROC: 5A09357 Assistance with Respiratory Ventilation, Less than 24 Consecutive Hours, Continuous Positive Airway Pressure (ICD-10-PCS; 2024-05-08)
PROC: 5A0935A Assistance with Respiratory Ventilation, Less than 24 Consecutive Hours, High Flow/Velocity Cannula (ICD-10-PCS; 2024-05-08)
PROC: 5A09357 Assistance with Respiratory Ventilation, Less than 24 Consecutive Hours, Continuous Positive Airway Pressure (ICD-10-PCS; 2024-05-09)
PROC: 5A09357 Assistance with Respiratory Ventilation, Less than 24 Consecutive Hours, Continuous Positive Airway Pressure (ICD-10-PCS; 2024-05-09)
PROC: 5A0945A Assistance with Respiratory Ventilation, 24-96 Consecutive Hours, High Flow/Velocity Cannula (ICD-10-PCS; 2024-05-09)
PROC: 5A0935A Assistance with Respiratory Ventilation, Less than 24 Consecutive Hours, High Flow/Velocity Cannula (ICD-10-PCS; 2024-05-10)
PROC: 5A09357 Assistance with Respiratory Ventilation, Less than 24 Consecutive Hours, Continuous Positive Airway Pressure (ICD-10-PCS; 2024-05-10)
PROC: BW241ZZ Computerized Tomography (CT Scan) of Chest and Abdomen using Low Osmolar Contrast (ICD-10-PCS; principal; 2024-05-11)
PROC: 5A09357 Assistance with Respiratory Ventilation, Less than 24 Consecutive Hours, Continuous Positive Airway Pressure (ICD-10-PCS; 2024-05-11)
PROC: 5A09357 Assistance with Respiratory Ventilation, Less than 24 Consecutive Hours, Continuous Positive Airway Pressure (ICD-10-PCS; 2024-05-11)
PROC: 5A09357 Assistance with Respiratory Ventilation, Less than 24 Consecutive Hours, Continuous Positive Airway Pressure (ICD-10-PCS; 2024-05-12)
DX: T82.6XXA Infection and inflammatory reaction due to cardiac valve prosthesis, initial encounter (principal); A41.81 Sepsis due to Enterococcus; I21.4 Non-ST elevation (NSTEMI) myocardial infarction; J96.01 Acute respiratory failure with hypoxia; I50.33 Acute on chronic diastolic (congestive) heart failure; J96.02 Acute respiratory failure with hypercapnia; I33.0 Acute and subacute infective endocarditis; J69.0 Pneumonitis due to inhalation of food and vomit; I13.0 Hypertensive heart and chronic kidney disease with heart failure and stage 1 through stage 4 chronic kidney disease, or unspecified chronic kidney disease; J44.1 Chronic obstructive pulmonary disease with (acute) exacerbation; J44.0 Chronic obstructive pulmonary disease with (acute) lower respiratory infection; E87.0 Hyperosmolality and hypernatremia; Z66 Do not resuscitate; Z20.822 Contact with and (suspected) exposure to COVID-19; I27.20 Pulmonary hypertension, unspecified; I48.91 Unspecified atrial fibrillation; D50.8 Other iron deficiency anemias; Z96.641 Presence of right artificial hip joint; N18.32 Chronic kidney disease, stage 3b; D69.6 Thrombocytopenia, unspecified; I25.10 Atherosclerotic heart disease of native coronary artery without angina pectoris; E78.5 Hyperlipidemia, unspecified; B95.4 Other streptococcus as the cause of diseases classified elsewhere; Y83.8 Other surgical procedures as the cause of abnormal reaction of the patient, or of later complication, without mention of misadventure at the time of the procedure; Z88.8 Allergy status to other drugs, medicaments and biological substances; Z79.01 Long term (current) use of anticoagulants; Z79.899 Other long term (current) drug therapy; Z86.73 Personal history of transient ischemic attack (TIA), and cerebral infarction without residual deficits; Z95.3 Presence of xenogenic heart valve; Z95.1 Presence of aortocoronary bypass graft; Z51.5 Encounter for palliative care; Z87.891 Personal history of nicotine dependence; Y92.89 Other specified places as the place of occurrence of the external cause
CPT/HCPCS: 36415; 36430; 36569; 36600; 70450; 71045; 71250; 71260; 74018; 74176; 76942; 80048; 80053; 80202; 80305; 81001; 82607; 82728; 82803; 82948; 83036; 83540; 83550; 83605; 83735; 83880; 84100; 84132; 84134; 84145; 84478; 84484; 85018; 85025; 85027; 85610; 85730; 86885; 86900; 86901; 86920; 87040; 87070; 87077; 87081; 87186; 87502; 87503; 87811; 92508; 92616; 93005; 93308; 94640; 94660; 94664; 94668; 94760; 94799; 97110; 97116; 97161; 97530; 99285; A4615; A4624; A5200; A6212; A6213; A6223; A6250; A6253; A6258; A6446; A6449; A6590; A7015; C1751; G0378; J0131; J0290; J0456; J0696; J0878; J1120; J1630; J1644; J1650; J1815; J1940; J2060; J2270; J2470; J2543; J2919; J3372; J3475; J3480; J3490; J7030; J7040; J7042; J7050; J7060; J7070; J7121; P9016; Q9963; Q9967